=== PATIENT | female | born 1955 | race Caucasian/White ===

== ENCOUNTER → 2017-08-14 11:53 | Outpatient (CLI) | payer MEDICARE, SELFPAY | PROVIDERS: Family Provider Family Medicine; PCP Family Medicine; Visit Provider Family Medicine | DX: Z12.31 Encounter for screening mammogram for malignant neoplasm of breast (principal); Z53.9 Procedure and treatment not carried out, unspecified reason ==

== ENCOUNTER → 2017-09-14 10:21 | Outpatient (CLI) | payer MEDICARE, SELFPAY ==
--- NOTE | 2017-09-14 | DI.MG.S_ITS ---
BILATERAL DIGITAL SCREENING MAMMOGRAM 3D/2D WITH CAD: 09/14/2017 CLINICAL: Routine screening. Family history of breast cancer. Comparison is made to exams dated: 07/22/2014 ductography - [facility], 07/01/2014 mammogram, and 07/01/2014 mammogram - [facility]. The tissue of both breasts is heterogeneously dense. This may lower the sensitivity of mammography. Current study was also evaluated with a Computer Aided Detection (CAD) system. There is a biopsy clip in the left breast. No significant masses, calcifications, or other findings are seen in either breast. There has been no significant interval change. IMPRESSION: NEGATIVE There is no mammographic evidence of malignancy. A 1 year screening mammogram is recommended. This exam was interpreted at Station ID: [id number]. NOTE: For mammograms, a report in lay terms will be sent to the patient. Approximately 15% of breast malignancies will not be visualized mammographically. In the management of a palpable breast mass, a negative mammogram must not discourage biopsy of a clinically suspicious lesion. Electronically Signed By: Pj arellano/godfrey:09/14/2017 11:42:20 letter sent: Normal Exam ACR BI-RADS Category 1: Negative [id number]
== END ==
PROVIDERS: Family Provider Family Medicine; PCP Family Medicine; Visit Provider Family Medicine
DX: Z12.31 Encounter for screening mammogram for malignant neoplasm of breast (principal); Z80.3 Family history of malignant neoplasm of breast
CPT/HCPCS: 77063; 77067

== ENCOUNTER → 2018-10-30 12:35 | Outpatient (CLI) | payer MEDICARE, SELFPAY ==
[2018-10-30 13:23] LABS: BUN Creatinine Ratio 25.7 (6-22); Blood Urea Nitrogen 18 mg/dL (7-17); Calcium 9.5 mg/dL (8.4-10.2); Carbon Dioxide 27 mmol/L (22-32); Chloride 103 mmol/L (98-107); Estimated Glomerular Filt Rate > 60.0 mL/min (>60); Glucose 91 mg/dL (80-110); HEMOLYSIS < 15 (0-50); Potassium 4.2 mmol/L (3.4-5.1); Sodium 139 mmol/L (137-145)
== END ==
PROVIDERS: PCP Family Medicine; Visit Provider Family Medicine
DX: M85.80 Other specified disorders of bone density and structure, unspecified site (principal)
CPT/HCPCS: 36415; 80048

== ENCOUNTER → 2019-01-31 16:22 | Outpatient (CLI) | payer MEDICARE, SELFPAY ==
[2019-01-31 17:45] LABS: BUN Creatinine Ratio 25.7 (6-22); Blood Urea Nitrogen 18 mg/dL (7-17); Calcium 9.8 mg/dL (8.4-10.2); Carbon Dioxide 31 mmol/L (22-32); Chloride 100 mmol/L (98-107); Estimated Glomerular Filt Rate > 60.0 mL/min (>60); Glucose 103 mg/dL (80-110); HEMOLYSIS < 15 (0-50); Sodium 140 mmol/L (137-145)
[2019-01-31 18:26] LABS: HIV 1 & 2 Ab/Ag 4th Gen Combo NEGATIVE (NEGATIVE)
[2019-02-02 15:48] LABS: RPR Screen Nonreactive (Nonreactive)
[2019-02-02 18:54] LABS: HSV1IGG 5.86 index (< 0.90)
[2019-02-03 11:38] LABS: Hepatitis A Antibody IgM NONREACTIVE; Hepatitis Acute Panel Interp 0.01; Hepatitis B Core Antibody IgM NONREACTIVE; Hepatitis B Surface Antigen NONREACTIVE; Hepatitis C Antibody NONREACTIVE
== END ==
PROVIDERS: PCP Family Medicine; Visit Provider Family Medicine
DX: Z20.2 Contact with and (suspected) exposure to infections with a predominantly sexual mode of transmission (principal); N28.9 Disorder of kidney and ureter, unspecified
CPT/HCPCS: 36415; 80048; 80074; 86592; 86695; 86696; 87389

== ENCOUNTER → 2019-09-18 11:38 | Outpatient (CLI) | payer MEDICARE, SELFPAY | PROVIDERS: PCP Family Medicine; Visit Provider Nurse Practitioner | DX: N89.8 Other specified noninflammatory disorders of vagina (principal); R10.2 Pelvic and perineal pain | CPT/HCPCS: 87070; 87077; 87205 ==

== ENCOUNTER → 2019-10-14 09:02 | Outpatient (CLI) | payer MEDICARE, SELFPAY ==
[2019-10-14 10:56] LABS: BUN Creatinine Ratio 23.1 (6-22); Blood Urea Nitrogen 15 mg/dL (7-17); Calcium 9.4 mg/dL (8.4-10.2); Carbon Dioxide 28 mmol/L (22-32); Chloride 103 mmol/L (98-107); Estimated Glomerular Filt Rate > 60.0 mL/min (>60); Glucose 95 mg/dL (80-110); HEMOLYSIS < 15 (0-50); Potassium 4.4 mmol/L (3.4-5.1); Sodium 138 mmol/L (137-145)
== END ==
PROVIDERS: PCP Family Medicine; Referring Provider Family Medicine; Visit Provider Family Medicine
DX: Z51.81 Encounter for therapeutic drug level monitoring (principal); M18.0 Bilateral primary osteoarthritis of first carpometacarpal joints; Z79.1 Long term (current) use of non-steroidal anti-inflammatories (NSAID)
CPT/HCPCS: 36415; 80048

== ENCOUNTER → 2020-04-21 10:22 | Outpatient (CLI) | payer MEDICARE, SELFPAY ==
[2020-04-21 11:38] LABS: BUN Creatinine Ratio 23.6 (6-22); Blood Urea Nitrogen 17 mg/dL (7-17); Calcium 9.3 mg/dL (8.4-10.2); Carbon Dioxide 30 mmol/L (22-32); Chloride 102 mmol/L (98-107); Estimated Glomerular Filt Rate > 60.0 mL/min (>60); Glucose 100 mg/dL (80-110); HEMOLYSIS < 15 (0-50); Potassium 4.6 mmol/L (3.4-5.1); Sodium 137 mmol/L (137-145)
== END ==
PROVIDERS: PCP Family Medicine; Referring Provider Family Medicine; Visit Provider Family Medicine
DX: Z51.81 Encounter for therapeutic drug level monitoring (principal); M18.0 Bilateral primary osteoarthritis of first carpometacarpal joints; Z79.1 Long term (current) use of non-steroidal anti-inflammatories (NSAID)
CPT/HCPCS: 36415; 80048

== ENCOUNTER → 2020-04-29 09:58 | Outpatient (CLI) | payer MEDICARE, SELFPAY ==
--- NOTE | 2020-04-29 10:01 | DI.RAD.S_ITS ---
PROCEDURE: XR LUMBAR SPINE 2-3V INDICATIONS: Low back pain TECHNIQUE: 3 views of the lumbar spine were acquired. COMPARISON: None. FINDINGS: Bones: 5 [id number] vertebrae are present. There is near normal bony alignment. No vertebral body compression fractures. No suspicious bony lesions. Facet osteoarthritis is mild at L3-4, moderate at L4-5 and moderately severe at L5-S1. This is associated with mild grade 1 anterolisthesis of L4 on L5. Soft tissues: Overlying bowel gas pattern is normal. No suspicious soft tissue calcifications. IMPRESSION: No compression fracture found. Degenerative disc height reduction is present as is facet osteoarthritis at L4-5 to the degree that grade 1 anterolisthesis is present of L4 on L5, likely due to ligamentous laxity. No compression fracture found. Spinal and foraminal stenosis likely is present at L4-5 and L5-S1. Dictated by: Stephen Castro M.D. on 04/29/2020 at 11:16 Approved by: Stephen Castro M.D. on 04/29/2020 at 11:17
--- NOTE | 2020-04-29 10:01 | DI.US.S_ITS ---
PROCEDURE: US PERIPH VENOUS LOW EXTREM LT INDICATIONS: left lower leg pain and swelling with travel TECHNIQUE: Real-time imaging, as well as color and pulse Doppler interrogation, were performed of the lower extremity deep veins from the inguinal ligament to the popliteal fossa. COMPARISON: None. FINDINGS: The left common femoral, femoral and popliteal veins are normally compressible, and free of intraluminal thrombus. Color and pulse Doppler demonstrate normal phasic intraluminal flow. There is normal augmentation response to distal compression maneuver. IMPRESSION: No DVT in the left lower extremity. Dictated by: Joel Fisher M.D. on 04/29/2020 at 11:07 Approved by: Joel Fisher M.D. on 04/29/2020 at 11:07
== END ==
PROVIDERS: PCP Family Medicine; Referring Provider Family Medicine; Visit Provider Family Medicine
DX: M79.605 Pain in left leg (principal); R22.42 Localized swelling, mass and lump, left lower limb; M54.40 Lumbago with sciatica, unspecified side; M47.816 Spondylosis without myelopathy or radiculopathy, lumbar region; M43.16 Spondylolisthesis, lumbar region
CPT/HCPCS: 72100; 93971

== ENCOUNTER → 2020-05-08 13:14 | Outpatient (CLI) | payer MEDICARE, SELFPAY ==
--- NOTE | 2020-05-08 13:16 | DI.MRI.S_ITS ---
PROCEDURE: MR LUMBAR SPINE WO CON INDICATIONS: leg pain TECHNIQUE: Noncontrast sagittal T1 spin echo and T2 fast echo, sagittal STIR, axial T1 and T2 fast spin echo through the lumbar spine. In cases with scoliosis, additional coronal T2 fast spin echo may be performed. COMPARISON: [facility], MR, L-SPINE WITHOUT CONTRAST, 08/10/2011, 17:53. [facility], CR, XR LUMBAR SPINE 2-3V, 04/29/2020, 10:04. [facility], MR, L-SPINE WITHOUT CONTRAST, 09/05/2013, 19:12. FINDINGS: Image quality: Excellent. Alignment and Curvature: There is minimal anterolisthesis seen at the L4-L5 level. Bone Marrow: Marrow is of normal overall signal. No acute vertebral body compression fractures. Spinal Cord: Conus medullaris terminates at the L1 level. Visualized cord demonstrates normal signal and size. Paraspinous Soft Tissues: No paravertebral masses. T12-L1: Normal appearance. L1-L2: Normal appearance. L2-L3: No significant abnormality is seen. L3-L4: The disc height is well-preserved. Loss of disc signal is seen at this level. Mild to moderate disc bulge is seen, which is eccentric to the right. At least moderate facet hypertrophy is seen. Associated hypertrophy of the ligamentum flavum can be seen. There is [id number] right-sided and minimal left-sided neural foraminal narrowing seen. Mild central canal narrowing is seen. When comparison is made with the prior examination, these findings are similar. L4-L5: Moderate loss of disc height is seen. Loss of disc signal is seen. Moderate disc bulge is seen, with a central disc protrusion. There is an associated annular fissure seen. At least moderate facet hypertrophy is seen at this level. There is moderate right-sided and moderate to severe left-sided neural foraminal narrowing seen. There is at least moderate central canal narrowing seen. These imaging findings have progressed compared to 2014. L5-S1: Mild loss of disc height is seen. Loss of disc signal is seen. Mild generalized disc bulge is seen. Mild to moderate facet hypertrophy is seen at this level. Minimal bilateral neural foraminal narrowing can be seen. Minimal central canal narrowing is seen. When comparison is made with the prior examination, these findings are similar. IMPRESSION: Lower lumbar spine degenerative changes are seen, which have progressed compared to 2014 at the L4-L5 level. Dictated by: Shree Reid M.D. on 05/08/2020 at 13:49 Approved by: Shree Reid M.D. on 05/08/2020 at 13:52
== END ==
PROVIDERS: PCP Family Medicine; Referring Provider Family Medicine; Visit Provider Family Medicine
DX: M47.26 Other spondylosis with radiculopathy, lumbar region (principal)
CPT/HCPCS: 72148

== ENCOUNTER 2020-05-28 19:14 | Emergency (ER) | payer MEDICARE, SELFPAY ==
[2020-05-28 19:18] VITALS: BP 157/77; PULSE 84; RESP 14; TEMP 36.6; O2SAT 96; BMI 25.9
--- NOTE | 2020-05-28 20:29 | ED.EXTPRO ---
HPI - Extremity Problem General Chief complaint: Extremity Problem,Nontraumatic Stated complaint: swelling left leg, pain Time Seen by Provider: 05/28/20 20:11 Source: patient Mode of arrival: Ambulatory Limitations: no limitations History of Present Illness HPI Narrative: Patient is a 64-year-old female who has known lumbar spinal stenosis/degenerative disc disease diagnosis from an MRI that was was recently performed. She has seen Orthopedics because of this and was informed that she most likely needed operative repair however she is waiting for a 2nd opinion from another commercial marketing specialist. She has seen her primary doctor about her lower back pain. She has a prescription for gabapentin which apparently she only takes occasionally. She has also been on a steroid taper. She has left lower extremity swelling that goes from her hip to her ankles. This is also not new for her. She had a left lower extremity DVT ultrasound performed that showed no signs of a DVT. She comes the emergency department today because her symptoms have continued and she thinks that her left leg swelling has worsened. Related Data Home Medications Medication Instructions Recorded Confirmed Fish Oil 1,000 mg PO QDAY PRN #0 09/18/19 04/29/20 Previous Rx's Medication Instructions Recorded meclizine 25 mg tablet 25 mg PO TID PRN #30 tab 02/06/20 sumatriptan succinate 50 mg tablet 50 mg PO ONCE PRN #10 tab 02/06/20 ibuprofen 800 mg tablet 800 mg PO Q8H PRN #90 tab 04/22/20 prednisone 50 mg tablet 50 mg PO DAILY #5 tab 05/06/20 gabapentin 300 mg capsule 300 mg PO TID PRN #60 cap 05/13/20 hydrocodone 5 mg-acetaminophen 325 1 tab PO Q8H PRN #30 tab 05/22/20 mg tablet hydrocodone-acetaminophen [[place]] 1 tab PO Q4-6H PRN #10 tab 05/28/20 Allergies Allergy/AdvReac Type Severity Reaction Status Date / Time morphine [MORPHINE] Allergy Severe SOB/ANAPHYL Verified 05/28/20 19:20 AXIS ketoconazole [KETOCONAZOLE] AdvReac Intermediate pain, rash Verified 05/28/20 19:20 Review of Systems Constitutional Constitutional: Denies fever(s) and Denies headache(s) ENT Ears, Nose, Mouth, and Throat: Denies vertigo and Denies headache(s) Cardiovascular Cardiovascular: Denies chest pain and Denies dyspnea Respiratory Respiratory: Denies dyspnea Gastrointestinal Gastrointestinal: Denies abdominal pain, Denies change in bowel habits, Denies nausea and Denies vomiting Genitourinary Genitourinary: Denies dysuria, Denies urinary hesitancy and Denies urinary urgency Genitourinary: Denies dysuria, Denies urinary hesitancy, Denies urinary urgency and Denies vaginal discharge Musculoskeletal Musculoskeletal: Reports back pain Comments: Left leg swelling Integumentary/Breasts Skin/Breast: Denies lesions and Denies rash Neurologic Neurologic: Denies behavioral changes, Denies confusion, Denies vertigo, Denies headache(s) and Reports paresthesias Psychiatric Psychiatric: Denies behavioral changes and Denies confusion Hematologic/Lymphatic On Anticoagulants: No Allergic/Immunologic Allergic/Immunologic: Denies urticaria Patient History Medical History Back pain of lumbar region with sciatica Breast cancer Carpal tunnel syndrome (~2007) Chronic back pain (~2006) Headache (~1976) Hearing deficit Lumbar strain Migraines (~1976) Osteoarthritis of spine with radiculopathy, lumbar region Psoriasis Vaginal atrophy Vaginal pain Vision disorder Yeast infection Surgical History Anesthesia History of carpal tunnel repair Status post breast lumpectomy Status post hysterectomy Family History Father Cancer Grandmother Age: 73 Dementia Essential hypertension Mother Diabetes mellitus Essential hypertension High cholesterol Mental health problem Sister Age: 66 Cancer Essential hypertension High cholesterol Grandfather No problems noted. Social History Smoking Status: Never smoker Smoking Status: Never smoker Exam Initial Vital Signs Initial Vital Signs: Vital Signs Temperature 97.8 F 05/28/20 19:18 Pulse Rate 84 05/28/20 19:18 Respiratory Rate 14 05/28/20 19:18 Blood Pressure 157/77 H 05/28/20 19:18 Pulse Oximetry 96 05/28/20 19:18 Const General: cooperative, comfortable, well developed and well groomed Limitations: mental status not altered HENMT Head: normal to inspection and normocephalic Resp Effort & Inspection: normal respiratory effort Auscultation: clear to auscultation bilaterally Cardio Rate: regular rate Rhythm: regular rhythm GI Inspection: non-distended Palpation: soft, No firm and No tender Back/Spine/Pelvis Thoracic/Lumbar Spine: paraspinal tenderness (Left lumbar) Skin Rashes: no rashes Extrem General: full ROM, capillary refill normal, no calf tenderness and edema (Nonpitting edema left lower extremity) Psych Appearance: grossly normal and well kempt Course Orders Ordered: ED Orders 05/28/20 20:29 US periph venous low extrem lt Stat 05/28/20 20:55 Complete Blood Count AUTO DIFF Stat Comprehensive Metabolic Panel Stat Lipase Stat NT-proBNP (BNP-Adult 18+) Stat Discontinued Medications Hydromorphone HCl (Hydromorphone 1 Mg Inj) 1 mg IM NOW ONE Stop: 05/28/20 20:30 Last Admin: 05/28/20 20:45 Dose: 1 mg Documented by: LORI Hydromorphone HCl (Hydromorphone 1 Mg Inj) 1 mg IM NOW ONE Stop: 05/28/20 23:25 Last Admin: 05/28/20 23:33 Dose: 1 mg Documented by: LORI Vital Signs Vital signs: Vital Signs - 8 hr 05/28/20 19:18 05/28/20 23:40 Temperature 97.8 F Pulse Rate 84 78 Respiratory Rate 14 17 Blood Pressure 157/77 H 147/91 H Pulse Oximetry 96 99 MDM - Extremity (Nontraumatic) Lab Data Result diagrams: 05/28/20 20:55 05/28/20 20:55 Labs: Lab Results 05/28/20 05/28/20 Range/Units 20:55 20:55 WBC 6.3 (4.5-11.0) X10^3/uL RBC 4.05 (4.0-5.2) X10^6/uL Hgb 12.4 (12.0-16.0) g/dL Hct 36.8 (36-46) % MCV 90.9 (80-100) fL MCH 30.7 (26-34) PG MCHC 33.8 (30-36) % RDW 13.6 (11.6-14.8) % Plt Count 234 (150-400) X10^3/uL Neut % (Auto) 58.6 (50-75) % Lymph % (Auto) 28.1 (25-40) % Whitley % (Auto) 9.1 (3-14) % Eos % (Auto) 3.2 (2-4) % Baso % (Auto) 1.0 (0-2) % Neut # (Auto) 3700 (8795-4099) /uL Lymph # (Auto) 1800 (0555-7882) /uL Whitley # (Auto) 600 (0-900) /uL Eos # (Auto) 200 (0-450) /uL Baso # (Auto) 100 (0-100) /uL Sodium 138 (137-145) mmol/L Potassium 4.0 (3.4-5.1) mmol/L Chloride 107 (98-107) mmol/L Carbon Dioxide 29 (22-32) mmol/L BUN 20 H (7-17) mg/dL Creatinine 0.61 (0.52-1.04) mg/dL Estimated GFR > 60.0 (>60) mL/min BUN/Creatinine Ratio 32.8 H (6-22) Glucose 101 (80-110) mg/dL Calcium 9.0 (8.4-10.2) mg/dL Total Bilirubin 0.2 (0.2-1.3) mg/dL AST 127 H (14-36) IU/L ALT 112 H (<35) IU/L Alkaline Phosphatase 91 (38-126) U/L NT-Pro-B Natriuret Pep 36 (<125) pg/mL Total Protein 6.7 (6.3-8.2) g/dL Albumin 4.0 (3.5-5.0) g/dL Globulin 2.7 (1.7-4.1) g/dL Albumin/Globulin Ratio 1.5 (1.0-2.8) Lipase 113 (23-300) U/L Imaging Data US - DVT: Radiologist's Impression: [address] [id number] ReportSigned Patient: Tiffani Firend MMR#: [id number]: 8Acct:[id number]/Sex: 64 / FDate of Service: 05/28/20Loc: EDAccession Number: [id number] Procedure: US periph venous low extrem lt Ordering Provider: Kal Jeffrey D.O. PROCEDURE: US PERIPH VENOUS LOW EXTREM LT INDICATIONS: eval for DVT TECHNIQUE: Real-time imaging, as well as color and pulse Doppler interrogation, were performed of the lower extremity deep veins from the inguinal ligament to the popliteal fossa. COMPARISON: [facility], , [facility] VENOUS LOW EXTREM LT, 04/29/2020, 10:50. FINDINGS: The common femoral, femoral and popliteal veins are normally compressible, and free of intraluminal thrombus. Color and pulse Doppler demonstrate normal phasic intraluminal flow. There is normal augmentation response to distal compression maneuver. IMPRESSION: No evidence of left lower extremity DVT. Dictated by: Elisabeth Drew M.D. on 05/28/2020 at 21:45 Approved by: Elisabeth Drew M.D. on 05/28/2020 at 21:45 MDM Narrative Medical decision making narrative: Patient has known degenerative disc disease with left-sided radiculopathy that is not new for her. She has prescriptions for medications at home but appears that she is only taking the gabapentin periodically same thing with anti-inflammatories. Informed her that she needed to be taking the gabapentin on a daily basis same with anti-inflammatories. We did discuss starting on a anti-reflux medication because of this. Low suspicion for cauda equina given her presentation today. Patient does have nonpitting edema with her left lower extremity. Her compartments are soft. She has no chest pain. No shortness of breath. Her kidney functions unremarkable. Low suspicion for heart failure. There is no signs of cellulitis. She has no abdominal tenderness. No change in bowel habits. Repeat ultrasound today again shows no DVT. Considered other etiologies such as a intra-abdominal/pelvic issue causing a decrease in venous drainage however besides the lower extremity swelling she has no other physical exam or history findings of make me concerned this. If this continues I would recommend obtaining a CT scan of her abdomen pelvis to confirm there is no intra-abdominal pathology. Informed her she needed to continue with her current plan of following up with the commercial marketing specialist to discuss surgical intervention of her back. She was given return precautions and follow-up instructions. She expressed understanding and agreement. Discharge Plan Departure Patient Disposition: Home Clinical Impression: Lumbar back pain with radiculopathy affecting left lower extremity, Edema of left lower extremity Instructions: DI for Low Back Pain, Activity May Be Better Than Rest for Low Back Pain Recovery, Exercise May Reduce Risk of Low Back Pain Activity Restrictions/Additional Instructions: I recommend that you continue all of your medications as directed. Contact your primary doctor and also the commercial marketing specialist that you are going to see for follow-up. I do recommend that you take the gabapentin 3 times a day. Also recommend that you take ibuprofen 3 times a day with food. Return to the emergency department for any new or worsening symptoms Prescriptions: New hydrocodone-acetaminophen [[place]] 5-325 mg tablet 1 tab PO Q4-6H PRN (Reason: pain) Qty: 10 RF: 0 No Action Fish Oil 1,000 mg PO QDAY PRNQty: 0 RF: 0 ibuprofen 800 mg tablet 800 mg PO Q8H PRN (Reason: pain) Qty: 90 RF: 0 prednisone 50 mg tablet 50 mg PO DAILY Qty: 5 RF: 0 gabapentin 300 mg capsule 300 mg PO TID PRN (Reason: nerve pain) Qty: 60 RF: 0 meclizine 25 mg tablet 25 mg PO TID PRN (Reason: dizziness) Qty: 30 RF: 1 sumatriptan succinate [Imitrex] 50 mg tablet 50 mg PO ONCE PRN (Reason: migraine headache) Qty: 10 RF: 1 hydrocodone-acetaminophen 5-325 mg tablet 1 tab PO Q8H PRN (Reason: pain) Qty: 30 RF: 0 Referrals: García Bolton MD [Primary Care Provider] -
[2020-05-28] MEDS: HYDROMORPHONE 1 MG INJ IM ×2 (20:45→23:33)
[2020-05-28 21:03] LABS: Add Manual Diff / Slide Review NO; Basophils Absolute Auto 100 /uL (0-100); Eosinophils Absolute Auto 200 /uL (0-450); Eosinophils Percent Auto 3.2 % (2-4); Hematocrit 36.8 % (36-46); Hemoglobin 12.4 g/dL (12.0-16.0); Lymphocytes Absolute Auto 1800 /uL (1100-4500); Lymphocytes Percent Auto 28.1 % (25-40); Mean Corpuscular HGB Conc 33.8 % (30-36); Mean Corpuscular Hemoglobin 30.7 PG (26-34); Mean Corpuscular Volume 90.9 fL (80-100); Monocytes Absolute Auto 600 /uL (0-900); Monocytes Percent Auto 9.1 % (3-14); Neutrophils Absolute Auto 3700 /uL (1500-7000); Neutrophils Percent Auto 58.6 % (50-75); Platelet Count 234 X10^3/uL (150-400); Red Blood Cell Count 4.05 X10^6/uL (4.0-5.2); Red Cell Distribution Width 13.6 % (11.6-14.8); White Blood Cell Count 6.3 X10^3/uL (4.5-11.0)
[2020-05-28 21:12] LABS: Alanine Aminotransferase 112 IU/L (<35); Albumin Globulin Ratio 1.5 (1.0-2.8); Alkaline Phosphatase 91 U/L (38-126); Aspartate Aminotransferase 127 IU/L (14-36); BUN Creatinine Ratio 32.8 (6-22); Bilirubin Total 0.2 mg/dL (0.2-1.3); Blood Urea Nitrogen 20 mg/dL (7-17); Carbon Dioxide 29 mmol/L (22-32); Chloride 107 mmol/L (98-107); Estimated Glomerular Filt Rate > 60.0 mL/min (>60); Globulin 2.7 g/dL (1.7-4.1); Glucose 101 mg/dL (80-110); HEMOLYSIS 32 (0-50); Lipase 113 U/L (23-300); Sodium 138 mmol/L (137-145); Total Protein 6.7 g/dL (6.3-8.2)
[2020-05-28 21:21] LABS: NT-proBNP (BNP-Adult 18+) 36 pg/mL (<125)
[2020-05-28 23:40] VITALS: BP 147/91; PULSE 78; RESP 17; O2SAT 99
== END 2020-05-28 23:40 | disposition home or self-care (01) ==
PROVIDERS: Emergency Provider Emergency Medicine; PCP Family Medicine
DX: M54.16 Radiculopathy, lumbar region (principal); R60.0 Localized edema; M79.605 Pain in left leg; M51.36 Other intervertebral disc degeneration, lumbar region
CPT/HCPCS: 36415; 80053; 83690; 83880; 85025; 93971; 96372; 99283; 99284; J1170

== ENCOUNTER → 2020-05-29 14:20 | Outpatient (CLI) | payer MEDICARE, SELFPAY ==
--- NOTE | 2020-05-29 14:22 | DI.CT.S_ITS ---
PROCEDURE: CT ABDOMEN PELVIS W CON INDICATIONS: evauluate for pathology TECHNIQUE: After the administration of intravenous contrast, 5 mm thick sections acquired from the diaphragm to the symphysis. 5 mm coronal and sagittal reformats were acquired. For radiation dose reduction, the following was used: automated exposure control, adjustment of mA and/or kV according to patient size. COMPARISON: None. FINDINGS: Image quality: Excellent. ABDOMEN: Lung bases: Lung bases are clear. Heart size is normal. Solid organs: Liver is normal in size and enhancement. Gallbladder is unremarkable. Biliary system is non dilated. Pancreas enhances normally. Spleen is normal in size and enhancement. No adrenal nodules. Kidneys demonstrate normal size and enhancement, without hydronephrosis. Peritoneum and bowel: Edema and wall thickening of the distal antrum/pylorus of the stomach. No gastric outlet obstruction. Bowel loops demonstrate normal wall thickness and caliber. No free fluid or air. Large amount of fecal debris. Probable appendectomy clips. Nodes and vessels: No retroperitoneal or mesenteric adenopathy by size criteria. Aorta and inferior vena cava are normal in size. Miscellaneous: No ventral hernias. PELVIS: Genitourinary: Bladder wall thickness is normal. Miscellaneous: No inguinal hernias or adenopathy. Uterus is surgically absent. Bones: No suspicious bony lesions. No vertebral body compression fractures. IMPRESSION: 1. Edema and thickening of the distal antrum and pylorus of the stomach. Consider peptic ulcer disease. Consider direct endoscopic visualization on a nonemergent basis. 2. No other significant acute findings. Dictated by: Dar Feliz M.D. on 05/29/2020 at 15:04 Approved by: Dar Feliz M.D. on 05/29/2020 at 15:08
== END ==
PROVIDERS: PCP Family Medicine; Referring Provider Family Medicine; Visit Provider Family Medicine
DX: R60.0 Localized edema (principal)
CPT/HCPCS: 74177

== ENCOUNTER 2020-06-03 20:04 | Emergency (ER) | payer MEDICARE, SELFPAY ==
[2020-06-03 20:12] VITALS: BP 177/92; PULSE 91; RESP 18; O2SAT 97; BMI 24.4
[2020-06-03 20:53] LABS: Add Manual Diff / Slide Review NO; Basophils Absolute Auto 100 /uL (0-100); Eosinophils Absolute Auto 300 /uL (0-450); Eosinophils Percent Auto 3.6 % (2-4); Hematocrit 39.8 % (36-46); Hemoglobin 13.2 g/dL (12.0-16.0); Lymphocytes Absolute Auto 1700 /uL (1100-4500); Lymphocytes Percent Auto 24.6 % (25-40); Mean Corpuscular HGB Conc 33.2 % (30-36); Mean Corpuscular Hemoglobin 30.4 PG (26-34); Mean Corpuscular Volume 91.5 fL (80-100); Monocytes Absolute Auto 700 /uL (0-900); Monocytes Percent Auto 9.3 % (3-14); Neutrophils Absolute Auto 4300 /uL (1500-7000); Neutrophils Percent Auto 61.5 % (50-75); Platelet Count 267 X10^3/uL (150-400); Red Blood Cell Count 4.34 X10^6/uL (4.0-5.2); Red Cell Distribution Width 13.8 % (11.6-14.8)
[2020-06-03 20:56] LABS: Prothrombin Time 10.9 SECONDS (10.1-12.7)
[2020-06-03 21:01] LABS: Alanine Aminotransferase 53 IU/L (<35); Albumin 4.4 g/dL (3.5-5.0); Albumin Globulin Ratio 1.6 (1.0-2.8); Alkaline Phosphatase 86 U/L (38-126); Aspartate Aminotransferase 38 IU/L (14-36); BUN Creatinine Ratio 23.5 (6-22); Bilirubin Total 0.1 mg/dL (0.2-1.3); Blood Urea Nitrogen 16 mg/dL (7-17); Calcium 9.5 mg/dL (8.4-10.2); Carbon Dioxide 29 mmol/L (22-32); Chloride 104 mmol/L (98-107); Estimated Glomerular Filt Rate > 60.0 mL/min (>60); Globulin 2.7 g/dL (1.7-4.1); Glucose 97 mg/dL (80-110); HEMOLYSIS < 15 (0-50); Potassium 3.6 mmol/L (3.4-5.1); Sodium 137 mmol/L (137-145); Total Protein 7.1 g/dL (6.3-8.2)
[2020-06-03 21:06] LABS: C-Reactive Protein Quant < 0.5 mg/dL (<1.0)
[2020-06-03 21:33] LABS: D Dimer < 200 ng/mL (<230)
--- NOTE | 2020-06-03 21:41 | DI.CT.S_ITS ---
PROCEDURE: CT ANGIO LE LT INDICATIONS: pain, swelling left thigh, knee TECHNIQUE: After the administration of intravenous contrast, 2.5 mm sections acquired from T12 to the feet, with optional delayed image acquisition from the knees to the feet. 3-dimensional maximum intensity projection (MIP) coronal and sagittal reformats, and/or 3-dimensional volume rendering reformatting was then performed. For radiation dose reduction, the following was used: automated exposure control. COMPARISON: None. FINDINGS: Image quality: Excellent. Extravascular tissues: Lung bases are clear. Heart size is normal. Liver is normal in size and enhancement. Gallbladder is unremarkable. Biliary system is non dilated. Pancreas enhances normally. There is a large heterogeneous, hypervascular mass in the spleen which measures 4.7 x 4.7 x 5.0 cm. No adrenal nodules. Kidneys are normal in size and enhancement, without hydronephrosis. Non opacified bowel loops demonstrate normal wall thickness and enhancement. No free fluid or air. No retroperitoneal or mesenteric adenopathy. No ventral hernias. Bladder wall thickness is normal. No inguinal hernias or adenopathy. No suspicious bony lesions. No vertebral body compression fractures. Uterus is surgically absent. Abdominal aorta: Widely patent. SMA, celiac, [place], and renals are widely patent. Right lower extremity: Common iliac, external iliac, common femoral, SFA, popliteal, and 3 runoff vessels are widely patent. Left lower extremity: Common iliac, external iliac, common femoral, SFA, popliteal, and posterior tibial and peroneal are widely patent. Anterior tibial appears to be diminutive and may occlude. There is no vascular malformation noted. No vascular lesion of the thigh identified. IMPRESSION: 1. Left lower extremity arterial runoff demonstrates a diminutive anterior tibial artery with question of occlusion. The vasculature is otherwise unremarkable. There is no lesion in the left thigh identified. 2. There is a 5 cm maximum diameter heterogeneous diffusely enhancing mass involving the spleen. It is on uncertain etiology. 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 Comment: Final report is concordant with preliminary interpretation provided by [facility]. Comment: Findings were discussed with Dr. Jeffrey at the time of study dictation on 06/04/2020 at 0834 hours. Dictated by: Dar Feliz M.D. on 06/04/2020 at 8:18 Approved by: Dar Feliz M.D. on 06/04/2020 at 8:44
[2020-06-03 21:46] LABS: Bacteria Urine None Seen; RBC Urine None Seen (0-5/HPF); WBC Urine None Seen (0-5/HPF)
[2020-06-03 21:47] LABS: Appearance Urine UA CLEAR; Bilirubin Urine UA NEGATIVE (NEGATIVE); Color Urine UA YELLOW; Glucose Urine UA NEGATIVE (Negative); Ketones Urine UA NEGATIVE (NEGATIVE); Leukocyte Esterase Urine UA NEGATIVE (NEGATIVE); Nitrite Urine UA NEGATIVE (Negative); Occult Blood Urine UA TRACE-LYSED (Negative); Protein Urine UA NEGATIVE (Negative); Specific Gravity Urine UA <=1.005 (1.000-1.035); Urobilinogen Urine UA 0.2 E.U./dL (0.2)
[2020-06-03 21:49] LABS: pH Urine UA 6.5 (4.5-8.0)
[2020-06-03 21:53] LABS: Squamous Epithelial Cell Urine 0-1 /HPF (0-5/HPF)
--- NOTE | 2020-06-03 21:53 | ED_ITS ---
HPI - Extremity Problem General Chief complaint: Extremity Problem,Nontraumatic Stated complaint: feels miserable Time Seen by Provider: 06/03/20 20:05 Source: patient Mode of arrival: Ambulatory Limitations: no limitations History of Present Illness HPI Narrative: 64-year-old female nonsmoker with extensive history of lumbar pain presents with a friend and the chief complaint of increased pain and swelling in her left lower extremity in the absence of any injury. She states her symptoms have been gradually worsening for least the past few days. Additionally she has had some upper abdominal discomfort and nausea but denies any vomiting. She has had no fever chills. She denies any injury or trauma. She denies any chest pain or shortness of breath. She is not dizzy or lightheaded but says she generally feels unwell and weak. She was seen and evaluated a few days ago and had a very thorough evaluation including and a lower extremity Doppler which was negative for DVT. She had close follow-up with her PCP who then ordered an outpatient abdominal and pelvic CT which was largely unremarkable except for some thickening at the antrum suggestive of mild GI problem. Patient states that the pain in her leg is worse with motion and improves with rest. She states it hurts with both passive and active range of motion. She denies any trouble controlling bowel or bladder. MD Complaint: extremity pain and extremity swelling Onset (ago): day(s) Pain Consistency: constant Location: left Quality: aching and constant Radiation: distal Relieving factors: rest Exacerbating factors: range of motion Associated symptoms: denies other symptoms Related Data Home Medications Medication Instructions Recorded Confirmed Fish Oil 1,000 mg PO QDAY PRN #0 09/18/19 04/29/20 Previous Rx's Medication Instructions Recorded meclizine 25 mg tablet 25 mg PO TID PRN #30 tab 02/06/20 sumatriptan succinate 50 mg tablet 50 mg PO ONCE PRN #10 tab 02/06/20 ibuprofen 800 mg tablet 800 mg PO Q8H PRN #90 tab 04/22/20 prednisone 50 mg tablet 50 mg PO DAILY #5 tab 05/06/20 gabapentin 300 mg capsule 300 mg PO TID PRN #60 cap 05/13/20 hydromorphone 2 mg tablet 1 mg PO Q8H PRN #6 tab 05/29/20 Allergies Allergy/AdvReac Type Severity Reaction Status Date / Time morphine [MORPHINE] Allergy Severe SOB/ANAPHYL Verified 06/03/20 20:11 AXIS ketoconazole [KETOCONAZOLE] AdvReac Intermediate pain, rash Verified 06/03/20 20:11 Review of Systems Constitutional Constitutional: Denies chills, Denies fatigue, Denies fever(s), Denies frequent falls, Denies lethargy and Reports weakness Eyes Eyes: Denies change in vision, Denies eye discharge, Denies irritation and Denies loss of vision ENT Ears, Nose, Mouth, and Throat: Denies change in voice, Denies dizziness, Denies neck pain, Denies sore throat and Denies throat swelling Cardiovascular Cardiovascular: Denies chest pain, Denies irregular heart rhythm, Denies lightheadedness, Denies palpitations, Denies dyspnea, Denies dyspnea on exertion and Denies orthopnea Respiratory Respiratory: Denies cough, Denies dyspnea, Denies dyspnea on exertion and Denies wheezing Gastrointestinal Gastrointestinal: Denies abdominal pain, Denies change in bowel habits, Denies diarrhea, Reports nausea and Denies vomiting Musculoskeletal Musculoskeletal: Reports arthralgias, Reports joint swelling, Reports limited range of motion, Denies neck pain and Denies numbness Integumentary/Breasts Skin/Breast: Denies pruritus, Denies erythema, Denies rash, Reports skin pain, Reports skin swelling and Denies wounds Neurologic Neurologic: Denies behavioral changes, Denies confusion, Denies dizziness, Denies frequent falls, Denies loss of vision, Denies numbness and Reports weakness Psychiatric Psychiatric: Denies anxiety, Denies behavioral changes, Denies confusion, Denies depression, Denies homicidal ideation and Denies suicidal ideation Endocrine Endocrine: Denies fatigue, Denies flushing and Denies palpitations Hematologic/Lymphatic Hematologic/Lymphatic: Denies easy bruising Allergic/Immunologic Allergic/Immunologic: Denies urticaria, Denies throat swelling and Denies wheezing Patient History Medical History Back pain of lumbar region with sciatica Breast cancer Carpal tunnel syndrome (~2007) Chronic back pain (~2006) Headache (~1976) Hearing deficit Lumbar strain Migraines (~1976) Osteoarthritis of spine with radiculopathy, lumbar region Psoriasis Vaginal atrophy Vaginal pain Vision disorder Yeast infection Surgical History Anesthesia History of carpal tunnel repair Status post breast lumpectomy Status post hysterectomy Family History Father Cancer Grandmother Age: 73 Dementia Essential hypertension Mother Diabetes mellitus Essential hypertension High cholesterol Mental health problem Sister Age: 66 Cancer Essential hypertension High cholesterol Grandfather No problems noted. Social History Smoking Status: Never smoker Smoking Status: Never smoker Substance Use Type: does not use Exam Narrative Exam Narrative: GENERAL: [64] year old patient appears stated age. Well- nourished, well-developed patient, in mild distress. Obviously uncomfortable, rubbing her left anterior thigh and groin. HEAD: Atraumatic. Normocephalic. EYES: Pupils equal round and reactive. Extraocular motions intact. No scleral icterus. No injection or drainage. ENT: Nose without bleeding, purulent drainage. Throat without erythema, tonsillar hypertrophy or exudate. Airway patent. NECK: Trachea midline. Non tender CARDIOVASCULAR: Regular rate and rhythm without murmurs, gallops, or rubs. RESPIRATORY: Clear to auscultation. Breath sounds equal bilaterally. No wheezes, rales, or rhonchi. GASTROINTESTINAL: Abdomen soft, non-tender, nondistended. EXTREMITIES: Increased pain with both passive and active range of motion at the left hip, no obvious deformity, no obvious swelling or erythema. Tender to palpation of hip, anterior thigh and posterior knee. Skin is warm, pink and dry. Dorsalis pedis pulse 2 + BACK: Nontender without deformity or crepitance. No flank tenderness. NEURO: AOx3. No numbness or tingling SKIN: No rash or erythema of visible areas Initial Vital Signs Initial Vital Signs: Vital Signs Pulse Rate 91 H 06/03/20 20:12 Respiratory Rate 18 06/03/20 20:12 Blood Pressure 177/92 H 06/03/20 20:12 Pulse Oximetry 97 06/03/20 20:12 Course Orders Ordered: ED Orders 06/03/20 20:30 C-Reactive Protein Quant Stat Complete Blood Count AUTO DIFF Stat Comprehensive Metabolic Panel Stat D Dimer Stat Prothrombin Time INR Stat 06/03/20 21:05 Urinalysis and Microscopic Stat 06/03/20 21:41 CT angio LE LT Stat Vital Signs Vital signs: Vital Signs - 8 hr 06/03/20 20:12 06/03/20 22:10 06/03/20 23:43 Pulse Rate 91 H 64 61 Respiratory Rate 18 16 18 Blood Pressure 177/92 H 149/75 H 149/86 H Pulse Oximetry 97 98 98 MDM - Extremity (Nontraumatic) Lab Data Result diagrams: 06/03/20 20:30 06/03/20 20:30 Labs: Lab Results 06/03/20 06/03/20 06/03/20 Range/Units 20:30 20:30 20:30 WBC 7.0 (4.5-11.0) X10^3/uL RBC 4.34 (4.0-5.2) X10^6/uL Hgb 13.2 (12.0-16.0) g/dL Hct 39.8 (36-46) % MCV 91.5 (80-100) fL MCH 30.4 (26-34) PG MCHC 33.2 (30-36) % RDW 13.8 (11.6-14.8) % Plt Count 267 (150-400) X10^3/uL Neut % (Auto) 61.5 (50-75) % Lymph % (Auto) 24.6 L (25-40) % [place] % (Auto) 9.3 (3-14) % Eos % (Auto) 3.6 (2-4) % Baso % (Auto) 1.0 (0-2) % Neut # (Auto) 4300 (9662-8977) /uL Lymph # (Auto) 1700 (7946-5277) /uL [place] # (Auto) 700 (0-900) /uL Eos # (Auto) 300 (0-450) /uL Baso # (Auto) 100 (0-100) /uL PT 10.9 (10.1-12.7) SECONDS INR 1.0 (0.9-1.3) D-Dimer < 200 (<230) ng/mL Sodium (137-145) mmol/L Potassium (3.4-5.1) mmol/L Chloride (98-107) mmol/L Carbon Dioxide (22-32) mmol/L BUN (7-17) mg/dL Creatinine (0.52-1.04) mg/dL Estimated GFR (>60) mL/min BUN/Creatinine Ratio (6-22) Glucose (80-110) mg/dL Calcium (8.4-10.2) mg/dL Total Bilirubin (0.2-1.3) mg/dL AST (14-36) IU/L ALT (<35) IU/L Alkaline Phosphatase (38-126) U/L C-Reactive Protein (<1.0) mg/dL Total Protein (6.3-8.2) g/dL Albumin (3.5-5.0) g/dL Globulin (1.7-4.1) g/dL Albumin/Globulin Ratio (1.0-2.8) Urine Color Urine Appearance Urine pH (4.5-8.0) Ur Specific [place] (1.000-1.035) Urine Protein (Negative) Urine Glucose (UA) (Negative) g/dL Urine Ketones (NEGATIVE) Urine Occult Blood (Negative) Urine Nitrate (Negative) Urine Bilirubin (NEGATIVE) Urine Urobilinogen (0.2) E.U./dL Ur Leukocyte Esterase (NEGATIVE) Urine RBC (0-5/HPF) Urine WBC (0-5/HPF) Ur Squamous Epith Cells (0-5/HPF) Urine Bacteria (None) Ur Culture Indicated? Micro UA Comment 06/03/20 06/03/20 Range/Units 20:30 21:05 WBC (4.5-11.0) X10^3/uL RBC (4.0-5.2) X10^6/uL Hgb (12.0-16.0) g/dL Hct (36-46) % MCV (80-100) fL MCH (26-34) PG MCHC (30-36) % RDW (11.6-14.8) % Plt Count (150-400) X10^3/uL Neut % (Auto) (50-75) % Lymph % (Auto) (25-40) % [place] % (Auto) (3-14) % Eos % (Auto) (2-4) % Baso % (Auto) (0-2) % Neut # (Auto) (1331-1164) /uL Lymph # (Auto) (8600-2071) /uL [place] # (Auto) (0-900) /uL Eos # (Auto) (0-450) /uL Baso # (Auto) (0-100) /uL PT (10.1-12.7) SECONDS INR (0.9-1.3) D-Dimer (<230) ng/mL Sodium 137 (137-145) mmol/L Potassium 3.6 (3.4-5.1) mmol/L Chloride 104 (98-107) mmol/L Carbon Dioxide 29 (22-32) mmol/L BUN 16 (7-17) mg/dL Creatinine 0.68 (0.52-1.04) mg/dL Estimated GFR > 60.0 (>60) mL/min BUN/Creatinine Ratio 23.5 H (6-22) Glucose 97 (80-110) mg/dL Calcium 9.5 (8.4-10.2) mg/dL Total Bilirubin 0.1 L (0.2-1.3) mg/dL AST 38 H (14-36) IU/L ALT 53 H (<35) IU/L Alkaline Phosphatase 86 (38-126) U/L C-Reactive Protein < 0.5 (<1.0) mg/dL Total Protein 7.1 (6.3-8.2) g/dL Albumin 4.4 (3.5-5.0) g/dL Globulin 2.7 (1.7-4.1) g/dL Albumin/Globulin Ratio 1.6 (1.0-2.8) Urine Color Yellow Urine Appearance Clear Urine pH 6.5 (4.5-8.0) Ur Specific [place] <=1.005 (1.000-1.035) Urine Protein Negative (Negative) Urine Glucose (UA) Negative (Negative) g/dL Urine Ketones Negative (NEGATIVE) Urine Occult Blood Trace-lysed (Negative) Urine Nitrate Negative (Negative) Urine Bilirubin Negative (NEGATIVE) Urine Urobilinogen 0.2 (0.2) E.U./dL Ur Leukocyte Esterase Negative (NEGATIVE) Urine RBC None seen (0-5/HPF) Urine WBC None seen (0-5/HPF) Ur Squamous Epith Cells 0-1 /hpf (0-5/HPF) Urine Bacteria None seen (None) Ur Culture Indicated? Cult not indicated Micro UA Comment Microscopic normal Urine Dip Bedside Urine Glucose Negative Bedside Urine Bilirubin - Negative Bedside Urine Ketone + 15 Urine Specific [place] 1.000 Bedside Urine Occult Blood + Bedside Urine pH 6 Bedside Urine Protein - Negative Bedside Urine Urobilinogen - Negative Bedside Urine Nitrite - Negative Bedside Urine Leukocytes - Negative Esterase Imaging Data CTA LE: Radiologist's Impression: No acute findings MDM Narrative Medical decision making narrative: Patient with known lumbar radiculopathy presents with concern for increasing pain and swelling of leg. No red flag symptoms such as fever, loss of bowel/bladder, LE weakness, saddle anesthesia, foot drop. No erythema, warmth, or swelling on exam to suggest DVT or cellulitis. No obvious worsening of symptoms with palpation. Very reassuring imaging and no evidence of abnormal findings on angiography. History, physical, labs, and imaging would suggest this is likely acute exacerbation of chronic lumbar radiculopathy. Patient feels much better after workup and discussions. She has been given return precautions and had questions answered to her apparent satisfaction. Discharge Plan Departure Patient Disposition: Home Clinical Impression: Left lumbar radiculopathy Instructions: DI for Lumbar Radiculopathy Activity Restrictions/Additional Instructions: *You have been diagnosed with [acute on chronic lumbar radiculopathy] *What to do: *Continue to take medications as directed *Follow up with your primary care provider in 2-3 days, call for an appointment. Let them know you were seen in the Emergency Department and that we ask that you be seen in follow up *Return to ER if you should have any new, worsening or concerning symptoms, such as [loss of control of bowel or bladder, leg weakness, or other bothersome symptoms ] Prescriptions: No Action Fish Oil 1,000 mg PO QDAY PRNQty: 0 RF: 0 ibuprofen 800 mg tablet 800 mg PO Q8H PRN (Reason: pain) Qty: 90 RF: 0 prednisone 50 mg tablet 50 mg PO DAILY Qty: 5 RF: 0 gabapentin 300 mg capsule 300 mg PO TID PRN (Reason: nerve pain) Qty: 60 RF: 0 hydromorphone [Dilaudid] 2 mg tablet 1 mg PO Q8H PRN (Reason: pain) Qty: 6 RF: 0 meclizine 25 mg tablet 25 mg PO TID PRN (Reason: dizziness) Qty: 30 RF: 1 sumatriptan succinate [Imitrex] 50 mg tablet 50 mg PO ONCE PRN (Reason: migraine headache) Qty: 10 RF: 1 Referrals: García oBlton MD [Primary Care Provider] -
[2020-06-03 21:54] LABS: Culture Indicated Urine Cult Not Indicated; Urine Comments Microscopic Normal
[2020-06-03 22:10] VITALS: BP 149/75; PULSE 64; RESP 16; O2SAT 98
[2020-06-03 23:43] VITALS: BP 149/86; PULSE 61; RESP 18; O2SAT 98
== END 2020-06-03 23:44 | disposition home or self-care (01) ==
PROVIDERS: Emergency Provider Emergency Medicine; PCP Family Medicine
DX: M54.16 Radiculopathy, lumbar region (principal)
CPT/HCPCS: 36415; 73706; 80053; 81001; 81003; 85025; 85379; 85610; 86140; 99284; Q9967

== ENCOUNTER → 2020-06-15 07:12 | Outpatient (CLI) | payer MEDICARE, SELFPAY ==
--- NOTE | 2020-06-15 07:13 | DI.US.S_ITS ---
PROCEDURE: US ABDOMEN LIMITED INDICATIONS: RULE OUT MASS/LESION/LYMPH NODES LEFT GROIN/LOWER QUADRANT TECHNIQUE: Real-time scanning was performed of the left lower quadrant, left adnexal region, left groin with Valsalva, with image documentation. COMPARISON: [place], [place], MD PET CT FUSION SKULL 2 THIGH, 06/10/2020, 10:17. CT abdomen and pelvis 05/29/2020. FINDINGS: No mass or enlarged lymph nodes. No fluid collection. No hernia. IMPRESSION: No mass or enlarged lymph nodes in the region of clinical concern. Dictated by: Gabriel Higgins M.D. on 06/15/2020 at 9:23 Approved by: Gabriel Higgins M.D. on 06/15/2020 at 9:27
== END ==
PROVIDERS: PCP Family Medicine; Referring Provider Specialist; Visit Provider Specialist
DX: R19.04 Left lower quadrant abdominal swelling, mass and lump (principal)
CPT/HCPCS: 76705

== ENCOUNTER → 2020-06-22 09:47 | Outpatient (CLI) | payer MEDICARE, SELFPAY ==
--- NOTE | 2020-06-22 | DI.RAD.S_ITS ---
PROCEDURE: XR LUMBAR SPINE 2-3V INDICATIONS: low back pain TECHNIQUE: 3 views of the lumbar spine were acquired. COMPARISON: [facility], CR, XR LUMBAR SPINE 2-3V, 04/29/2020, 10:04. FINDINGS: Bones: No fracture. Multilevel degenerative endplate sclerosis and spurring. Diffuse facet arthropathy. Moderate narrowing of the L4-L5 disc space. Grade 1 anterolisthesis of L4 on L5. No evidence of abnormal motion with dynamic flexion and extension lateral views. Soft tissues: Overlying bowel gas pattern is normal. No suspicious soft tissue calcifications. IMPRESSION: Lumbar spondylosis and grade 1 anterolisthesis of L4 on L5. No evidence of abnormal motion with dynamic flexion and extension lateral views. Dictated by: Aroldo Ogden M.D. on 06/22/2020 at 13:05 Approved by: Aroldo Ogden M.D. on 06/22/2020 at 13:10
== END ==
PROVIDERS: PCP Family Medicine; Referring Provider Orthopaedic Surgery Orthopaedic Surgery of the Spine; Visit Provider Orthopaedic Surgery Orthopaedic Surgery of the Spine
DX: M54.5 Low back pain (principal); M47.816 Spondylosis without myelopathy or radiculopathy, lumbar region; M43.16 Spondylolisthesis, lumbar region
CPT/HCPCS: 72100

== ENCOUNTER → 2020-07-28 09:21 | Outpatient (CLI) | payer MEDICARE, SELFPAY ==
[2020-07-28 12:10] LABS: COVID19 -Nasal RAPID Negative (Negative)
== END ==
PROVIDERS: PCP Family Medicine; Visit Provider Specialist
DX: Z20.822 Contact with and (suspected) exposure to COVID-19 (principal)
CPT/HCPCS: 87635

== ENCOUNTER 2020-07-29 09:31 | Observation (INO) | payer MEDICARE, SELFPAY ==
[2020-07-22 08:29] VITALS: BMI 24.4
[2020-07-29] VITALS (21 sets, daily range): BP systolic 102–138; BP diastolic 49–80; PULSE 57–108; RESP 14–18; TEMP 36–36.9; O2SAT 93–99; BMI 24.4
--- NOTE | 2020-07-29 | PATH_ITS ---
[facility] Accession Number: [id number] . 01 Material submitted: . spleen - SPLEEN . 01 Clinical history: . INPT . 01 Diagnosis: Spleen, Laparoscopic Splenectomy: Vascular lesion, final diagnosis pending outside expert consultation with Benjie Jaime M.D. ([employer], [place], [place]); reported as an addendum. [facility] 08/12/2020 1108 Local . 01 Comment: Sections show red pulp expansion with abnormal, altered sinusoidal architecture, cystic blood-filled spaces, and a rare thrombus. A panel of immunostains is obtained to further characterize, with the controls stained appropriately. The cells of interest show the following results: . CD34: Uniformly positive. ERG-1: Uniformly positive. CD8: Uniformly positive. CD68: Uniformly positive. CD4: Uniformly positive. CD21: Negative. CD3: Negative on sinusoidal lining cells. PAX5: Negative on sinusoidal lining cells. Ki-67: Less than 5%. . The preliminary results of this case are verbally provided by Dr. Bocanegra to Helen (of Dr. King's office) on 07/13/2020 at 1:30 p.m. 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 . Based on morphology, the differential for this vascular lesion includes but, is not limited to, the possibilities of a hemangioma, littoral cell angioma, splenic hamartoma and peliosis; however, the immunophenotype may not definitively distinguish between these entities, although the negative CD3 and PAX 5 on the sinusoidal lining cells rule against a T-cell lymphoma and hairy cell leukemia, respectively. . This case is also reviewed by hematopathologist Dr. Uma Jones who concurs with the given interpretation. . At this juncture, we are sending this case to an expert in splenic pathology, Dr. Benjie Jaime, with the results of his consultation and the final diagnosis reported as an addendum. . * This test was developed and its performance characteristics determined by [employer]. It has not been cleared or approved by the U.S. Food and Drug Administration. The FDA has determined that such clearance or approval is not necessary. This test is used for clinical purposes. It should not be regarded as investigational or for research. . 01 Electronically signed: . Arely Bocanegra MD, Pathologist NPI- [id number] . 01 Gross description: . The specimen is received in formalin, labeled spleen and consists of a 100-gram morcellated spleen measuring 14.0 x 9.0 x 6.0 cm in aggregate. The external surface is pink-purple and smooth. Sectioning reveals red-brown cut surfaces with indiscrete white pulp. [employer] Team Member sections are submitted in cassettes A1-A3. ([id number]) . ADDITIONAL CASSETTES: A4-A8: additional plastic products sales representative sections. ([id number]) /MRV 08/05/2020 1347 Local . 01 Pathologist provided ICD-10: D73.89 . 01 CPT . 811503, M68780, [id number] Performed at: [address] [facility] [address], [place], [place] [id number] MD Victoriano Vogel MD Phone: [phone]
--- NOTE | 2020-07-29 10:43 | P.OP.PRE_ITS ---
Pre-operative Note COVID-19 COVID-19 status: Negative Result date/Date tested (Pos, Neg/Pending): 07/28/20 Interval Note History & Physical reviewed/Exam performed by Physician: Yes Changes to H&P: Yes H&P completed within 30 days and has changed as indicated here:: Reviewed her operation with her again. Potential for an open procedure was discussed. She has received initial vaccinations for everything but the multi they Lint meningococcus as it conflicts with 1 of the other vaccinations she received. Because of the potential for neoplasm I did not feel further delay was appropriate. She will receive any additional vaccinations necessary postoperatively. I did review her CT scan with the radiologist. She has no abnormal vascular supply to the spleen and it does not appear to be anything o ther than normal vascularity.
[2020-07-29] MEDS: LACTATED RINGERS 1,000 ML 42 ML IV ×3 (10:46→16:15)
[2020-07-29] MEDS: CEFAZOLIN 2 GM/100 ML FROZ.PIGGY IV (11:21)
--- NOTE | 2020-07-29 12:03 | SUR.OPER ---
Modified right side down Lateral on padded OR bed, langley bag, bottom leg bent with gel pad under knee to foot, upper leg straight and supported with pillows. Upper arms supported by pillows and secured with tape over against body,Safety belt at hip, tape over blanket lower legs.
[2020-07-29] MEDS: BUPIVACAINE 0.5% (PF) VIAL 30 ML INJ (12:30)
--- NOTE | 2020-07-29 13:53 | P.OP_ITS ---
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 Closure Type: primary Specimen(s): other (Spleen morcellated) Prosthetic devices, grafts, tissues, transplants, or devices: None Estimated Blood Loss (mL): 300 Blood products transfused: none Procedure in detail: The patient was placed supine on a beanbag on the operating room table and underwent general endotracheal anesthesia. She was then placed in partial right lateral decubitus and prepped and draped in the usual fashion. An incision was made an inferior cyst umbilical scar and carried down under dire ct vision and the peritoneal cavity. A 12 mm port was inserted after inserting stay sutures of 0 Vicryl in the fascia. The abdomen is insufflated. Three additional ports were placed under the left costal margin. Initially these were all 5 mm ports but the middle port was replaced with a 12 mm port as the operation progressed to all for insertion of the vascular stapling device. Spleen was identified. Adhesions of the splenic flexure were taken with the Harmonic scalpel and the colon was kept out of the field. The inferior pole was elevated and dissection was begun in this area. Using Harmonic scalpel adhesions to these inferior pole were divided. There was a small amount of bleeding which progressed to a larger amount of bleeding and we applied clips and then isolated the vessel and applied a vascular stapler. This controlled this bleeding additional bleeding however ensued superior to this we came across the splenic hilum in steps 1st dividing arteries which cause the spleen to become discolored. We then divided the splenic vein using a vascular stapler. Ultimately multiple fires of the vascular staple across the hilum freed these attachments to the spleen.. The vascular supply from the stomach (that is the short gastrics) were divided with Harmonic scalpel at a convenient point in the operation once bleeding had been controlled. The spleen was detached placed in a bag and removed through the umbilical port by morcellating it in the bag. There was no spillage of contents in the abdomen or the wound. The left upper quadrant was irrigated and carefully examined. There did not appear to be an injury to the pancreas and there did not appear to be an injury to the stomach. There also was no bleeding. The left upper quadrant was irrigated suctioned free of fluid and the instrumentation removed. A Levar Montoya was used to close the fascia at the 2nd 12 mm port that was inserted under the left costal margin using a suture of 0 Vicryl. The stay sutures at the umbilicus were tied after placing a 2 0 PDS between them. The wounds were irrigated. 4-0 Vicryl was used to close the incisions in all locations. One 3-0 Vicryl was used to secure the umbilicus back down to the fascia. Local anesthetic was infiltrated. Steri-Strips and Mastisol were applied and the patient was flattened, extubated and taken the recovery room good condition. Complications: none Post-operative Condition: stable Disposition: PACU Plan for aftercare: Observation
[2020-07-29] MEDS: OXYCODONE/ACETAMINOPHEN 5/325 TABLET 1 TAB PO ×2 (14:00→14:31)
[2020-07-29] MEDS: HYDROMORPHONE 2 MG INJ IV (14:00)
[2020-07-29] MEDS: ONDANSETRON 4 MG/2 ML INJ IV ×2 (14:01→20:07)
[2020-07-29] MEDS: ACETAMINOPHEN 325 MG TABLET 650 MG PO (16:15)
[2020-07-29] MEDS: HYDROMORPHONE 1 MG INJ IV ×3 (17:08→23:22)
[2020-07-29] MEDS: GABAPENTIN 300 MG CAPSULE PO (21:05)
--- NOTE | 2020-07-29 23:39 | PC.NURSE ---
Patient is alert and oriented. Breath sounds CTA with RA sat of 96%. HRR. Denies nausea but has not yet eaten and declines offer of food. BT hypoactive and patient denies flatus. Is having 9/10 left side under ribs abdominal pain and was medicated by previous RN with IV Dilaudid. Bandaids to abdomen x 4 are all CDI. Denies dysuria, frequency or urgency with urination. Able to move self in bed. Reported to have gotten out of bed with SBA; patient states she feels generally weak. 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 Wearing bilateral calf SCD's. Fall risk score is moderate and bed alarm is activated.
[2020-07-30] MEDS: HYDROMORPHONE 1 MG INJ IV ×2 (02:18→05:42)
[2020-07-30 05:45] VITALS: BP 134/77; PULSE 81; RESP 16; TEMP 37; O2SAT 94
[2020-07-30 05:48] VITALS: O2SAT 93
[2020-07-30 06:37] LABS: Add Manual Diff / Slide Review NO; Basophils Absolute Auto 0 /uL (0-100); Basophils Percent Auto 0.1 % (0-2); Eosinophils Absolute Auto 0 /uL (0-450); Hematocrit 30.1 % (36-46); Hemoglobin 10.1 g/dL (12.0-16.0); Lymphocytes Absolute Auto 900 /uL (1100-4500); Mean Corpuscular HGB Conc 33.6 % (30-36); Mean Corpuscular Hemoglobin 31.2 PG (26-34); Mean Corpuscular Volume 93.1 fL (80-100); Monocytes Absolute Auto 1400 /uL (0-900); Monocytes Percent Auto 12.3 % (3-14); Neutrophils Absolute Auto 8800 /uL (1500-7000); Neutrophils Percent Auto 79.6 % (50-75); Platelet Count 283 X10^3/uL (150-400); Red Blood Cell Count 3.24 X10^6/uL (4.0-5.2); Red Cell Distribution Width 14.4 % (11.6-14.8); White Blood Cell Count 11.1 X10^3/uL (4.5-11.0)
[2020-07-30 07:45] VITALS: BP 123/64; PULSE 81; RESP 20; TEMP 36.6; O2SAT 93
[2020-07-30 08:00] VITALS: BP 124/67; PULSE 82; RESP 20; TEMP 36.8; O2SAT 93
--- NOTE | 2020-07-30 08:49 | PM.DS.1 ---
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 She was brought in for a laparoscopic splenectomy. She had a series of vaccinations prior to the procedure. Discharge Providers Provider Date of admission: 07/29/20 09:31 Discharge Date: 07/30/20 Primary care physician: García Bolton MD Consults: 07/29/20 15:54 Consult to Discharge Planning Routine Comment: Discharge provider: Tray King MD Summary Hospital Course Discharge Diagnosis: Splenic lesion pathology pending. Chronic back pain Acute blood loss anemia from the splenectomy. Hospital Course: The patient underwent a laparoscopic splenectomy. She was observed overnight. Vital signs were normal. CBC normal except for a hematocrit of 30 related to the blood loss from her operation. She was tolerating p.o. liquids well. She is discharged on oral pain medication to follow up in the office. She already has an appointment. Status at Discharge Cognitive/behavioral status at discharge: at baseline, oriented Functional status at discharge: independent ambulation Overall status at discharge: patient is progressing back to baseline Exam Vital Signs (past 8 hours): - 07/30/20 05:45 07/30/20 05:48 07/30/20 08:00 Temperature 98.6 F 98.2 F Pulse Rate 81 82 Respiratory Rate 16 20 Blood Pressure 134/77 124/67 Pulse Oximetry 94 93 93 Oxygen Delivery Method Room Air Oxygen Flow Rate 0 Narrative Exam Narrative: Lungs clear. Abdomen is soft. Appropriately tender. Band-Aids are intact and dry. Objective Labs Result Diagrams: 07/30/20 06:23 Labs: Laboratory Results - last 24 hr 07/29/20 07/30/20 12:13 06:23 WBC 11.1 H RBC 3.24 L Hgb 10.1 L Hct 30.1 L MCV 93.1 MCH 31.2 MCHC 33.6 RDW 14.4 Plt Count 283 Neut % (Auto) 79.6 H Lymph % (Auto) 8.0 L [place] % (Auto) 12.3 Eos % (Auto) 0.0 L Baso % (Auto) 0.1 Neut # (Auto) 8800 H Lymph # (Auto) 900 L [place] # (Auto) 1400 H Eos # (Auto) 0 Baso # (Auto) 0 Blood Type A Positive Antibody Screen Negative PFSH Medical History Back pain of lumbar region with sciatica Breast cancer Carpal tunnel syndrome (~2007) Chronic back pain (~2006) Headache (~1976) Hearing deficit Lumbar strain Migraines (~1976) Osteoarthritis of spine with radiculopathy, lumbar region Psoriasis Splenic mass Vaginal atrophy Vaginal pain Vision disorder Yeast infection Surgical History Anesthesia History of carpal tunnel repair Status post breast lumpectomy Status post hysterectomy Family History Father Cancer Grandmother Age: 74 Dementia Essential hypertension Mother Diabetes mellitus Essential hypertension High cholesterol Mental health problem Sister Age: 67 Cancer Essential hypertension High cholesterol Grandfather No problems noted. Social History marital status: unknown household members: none occupational status: previously employed Smoking Status: Never smoker alcohol intake: current substance use type: does not use Discharge Plan Discharge Plan Patient Disposition: Home Provider Discharge Comment: Your operation went well. You did lose enough blood to be anemic and therefore you should take iron and a multiple vitamin. Discharge orders & Medications Prescriptions: New hydromorphone [Dilaudid] 2 mg tablet 2 mg PO Q4H PRN (Reason: painful procedure) Qty: 20 RF: 0 Continued acetaminophen [Acetaminophen Extra Strength] 500 mg Tablet 1,000 mg PO Q3-4H RF: 0 Discontinued ibuprofen 800 mg tablet 800 mg PO Q8H PRN (Reason: pain) Qty: 90 RF: 0 Follow up/Referrals: García Bolton MD [Primary Care Provider] - Tray King MD [Physician] - As previously scheduled (If you need to reach a doctor please call our office. If it is after hours listen to the message. You will be instructed how to page the doctor on-call for our practice. Please have a pen and paper ready to write the number down.) Discharge Health Status Multidrug resistant organism: No MDRO Diet/Activity/Treatments Diet: Diet as Tolerated Activity: Do not lift over 10 lb or strain for the next 4 weeks. Avoid pool or tub for now. Do not drive into your pain-free off medication. Skin/Wound/Dressing Care Report to your healthcare provider any signs of infection, such as:: chills, fever, increased pain, unusual drainage and unusual redness Dressing: You may remove the Band-Aids tomorrow and shower. Leave the tape under the gauze fall off on its own. Visit Report/Discharge Packet Instructions: DI for Splenectomy Discharge Data Primary Care Provider: García Bolton Quality VTE Deep Vein Thrombosis/Pulmonary Embolism Present on Admission: No
--- NOTE | 2020-07-30 09:15 | CM.IDA ---
Initial DCP Assessment Note Pt is a 65 yo female,currently staying with a friend, now POD#1 from laparoscopic splenectomy w/ Dr King. 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 Patient is indp at baseline and in the room, eager to DC w/assist from her friends to recover. Close outpatient f/u recommended. No needs expected from DC planning team although will remain available in case this changes today. TERESSA Willingham Discharge Planning/Care Management CM Discharge Assessment Start: 07/30/20 09:13 Freq: Status: Active Protocol: Document 07/30/20 09:13 MARKIE (Rec: 07/30/20 09:15 MARKIE [id number]) Discharge Planning Assessment Assigned Warehouse Material Handler TERESSA Perez DPOA/Assigned Designee Name Yana Bae (friend) [phone] Contact Information Jose Matta (friend) Advance Directives? Yes History Provided By Patient,Medical Record Prior Living Arrangements House Household Members none Type of transporation used prior to Drives own vehicle admit Independent with ADL's Yes Is patient alert and oriented? Yes Barriers to Discharge No Discharge Plan Home Transportation Arrangement Friend Referrals Initiated None needed
[2020-07-30] MEDS: GABAPENTIN 300 MG CAPSULE PO (09:47)
[2020-07-30] MEDS: HYDROMORPHONE 2 MG TABLET PO (10:12)
[2020-07-30] MEDS: HYDROMORPHONE 4 MG TABLET PO (13:30)
--- NOTE | 2020-07-30 13:55 | PC.NURSE ---
Pt discharged from the unit. Educated patient on rising slowly from the bed, discussed waiting for a few moments before standing up, and making sure to not drive while taking pain medication. I educated the patient on the importance of oral hydration and prevention of constipation while taking pain medication. Educated patient on stroke signs and symptoms, follow-up with provider. I removed her IV. Printed materials reviewed at bedside and patient signed in acknowledgement. Discharge plan, education, and patient handouts reviewed, approved and witnessed by Nidia Pillai RN.
== END 2020-07-30 14:00 | disposition home or self-care (01) ==
PROVIDERS: Admitting Provider Specialist; PCP Family Medicine; Referring Provider Specialist; Visit Provider Specialist
PROC: 07TP4ZZ Resection of Spleen, Percutaneous Endoscopic Approach (ICD-10-PCS; CPT 38120; principal; 2020-07-29 11:30)
DX: D73.89 Other diseases of spleen (principal); Z20.822 Contact with and (suspected) exposure to COVID-19
CPT/HCPCS: 38120; 36415; 85025; 86850; 86900; 86901; 87635; C9803; G0378; G0379; J0360; J0690; J1100; J1170; J2250; J2405; J2704; J3010

== ENCOUNTER → 2020-09-24 08:28 | Outpatient (CLI) | payer MEDICARE, SELFPAY ==
[2020-07-29 09:47] VITALS: BMI 24.4
[2020-09-24 09:08] LABS: Add Manual Diff / Slide Review NO; Basophils Absolute Auto 100 /uL (0-100); Basophils Percent Auto 1.5 % (0-2); Eosinophils Absolute Auto 400 /uL (0-450); Eosinophils Percent Auto 5.3 % (2-4); Hematocrit 39.4 % (36-46); Lymphocytes Absolute Auto 1900 /uL (1100-4500); Lymphocytes Percent Auto 25.7 % (25-40); Mean Corpuscular HGB Conc 32.9 % (30-36); Mean Corpuscular Hemoglobin 31.6 PG (26-34); Mean Corpuscular Volume 96.1 fL (80-100); Monocytes Absolute Auto 1100 /uL (0-900); Monocytes Percent Auto 14.6 % (3-14); Neutrophils Absolute Auto 3800 /uL (1500-7000); Neutrophils Percent Auto 52.9 % (50-75); Platelet Count 503 X10^3/uL (150-400); Red Cell Distribution Width 13.9 % (11.6-14.8); White Blood Cell Count 7.2 X10^3/uL (4.5-11.0)
[2020-09-24 09:20] LABS: Blood Urea Nitrogen 17 mg/dL (7-17); Carbon Dioxide 28 mmol/L (22-32); Chloride 104 mmol/L (98-107); Estimated Glomerular Filt Rate > 60.0 mL/min (>60); Glucose 97 mg/dL (80-110); HEMOLYSIS < 15 (0-50); Potassium 4.3 mmol/L (3.4-5.1); Sodium 139 mmol/L (137-145)
== END ==
PROVIDERS: PCP Family Medicine; Referring Provider Family Medicine; Visit Provider Family Medicine
DX: Z01.818 Encounter for other preprocedural examination (principal); M47.26 Other spondylosis with radiculopathy, lumbar region; M54.40 Lumbago with sciatica, unspecified side
CPT/HCPCS: 36415; 80048; 85025

== ENCOUNTER → 2020-12-29 17:26 | Outpatient (CLI) | payer MEDICARE, SELFPAY ==
[2020-07-29 09:47] VITALS: BMI 24.4
--- NOTE | 2020-12-29 | DI.MRI.S_ITS ---
PROCEDURE: MR LUMBAR SPINE WO CON INDICATIONS: other invertebral disc degeneration TECHNIQUE: Noncontrast sagittal T1 spin echo and T2 fast echo, sagittal STIR, axial T1 and T2 fast spin echo through the lumbar spine. In cases with scoliosis, additional coronal T2 fast spin echo may be performed. COMPARISON: [facility], CT, CT ABDOMEN PELVIS W CON, 05/29/2020, 14:26. [facility], MR, L-SPINE WITHOUT CONTRAST, 09/05/2013, 19:12. [facility], MR, L-SPINE WITHOUT CONTRAST, 08/10/2011, 17:53. [facility], CR, XR LUMBAR SPINE 2-3V, 06/22/2020, 11:04. [facility], MR, MR LUMBAR SPINE WO CON, 05/08/2020, 13:36. FINDINGS: Image quality: Excellent. Alignment and Curvature: There is mild grade 1 anterolisthesis at the L4-L5 level. No associated pars defects are seen. Bone Marrow: Marrow is of normal overall signal. No acute vertebral body compression fractures. Spinal Cord: Conus medullaris terminates at the L1 level. Visualized cord demonstrates normal signal and size. Paraspinous Soft Tissues: No paravertebral masses. T12-L1: Normal appearance. L1-L2: Normal appearance. L2-L3: Normal appearance. L3-L4: The disc height is well-preserved. Loss of disc signal is seen at this level. Moderate disc bulge is seen, which is eccentric to the right, with a mild right foraminal disc protrusion, as on series 5, image 22. A mild annular fissure can be seen laterally on the left, as on series 6, image 7. At least moderate facet hypertrophy is seen at this level. There is mild right-sided and no left-sided neural foraminal narrowing seen. Moderate central canal narrowing is seen. When comparison is made with the prior images, these findings are similar. L4-L5: Moderate loss of disc height is seen. Loss of disc signal is seen. Moderate disc bulge is seen, with a mild central disc protrusion. There is a focal annular fissure seen posteriorly. At least moderate facet hypertrophy is seen. Prior left hemilaminectomy change can be seen. There is at least moderate right-sided and moderate to severe left-sided neural foraminal narrowing seen. A degree of compression can be seen upon the exiting left L4 nerve root. Mild central canal narrowing is seen. The degree of central canal narrowing is improved compared to the preoperative MRI. L5-S1: Mild loss of disc height is seen. Loss of disc signal is seen. Mild disc bulge is seen, with a mild central disc protrusion. Moderate facet joint hypertrophy is seen. No significant neural foraminal or central canal narrowing can be seen. When comparison is made with the prior images, these findings are similar. IMPRESSION: There is improved central canal narrowing seen at the L4-L5 level compared to the prior preoperative MRI, with interval left hemilaminectomy. Dictated by: Shree Reid M.D. on 12/29/2020 at 21:54 Approved by: Shree Reid M.D. on 12/29/2020 at 21:59
== END ==
PROVIDERS: PCP Family Medicine; Referring Provider Physician Assistant Medical; Visit Provider Physician Assistant Medical
DX: M48.03 Spinal stenosis, cervicothoracic region (principal); M51.36 Other intervertebral disc degeneration, lumbar region; M48.061 Spinal stenosis, lumbar region without neurogenic claudication
CPT/HCPCS: 72148

== ENCOUNTER → 2021-03-17 08:49 | Outpatient (CLI) | payer MEDICARE, SELFPAY ==
[2020-07-29 09:47] VITALS: BMI 24.4
--- NOTE | 2021-03-17 | DI.RAD.S_ITS ---
PROCEDURE: XR LUMBAR SPINE MIN 4V INDICATIONS: Other intervertebral disc degeneration, lumbar region TECHNIQUE: 4 views of the lumbar spine acquired, including flexion and extension views. COMPARISON: [facility], , XR LUMBAR SPINE 2-3V, 06/22/2020, 11:04. FINDINGS: Bones: 5 nonrib-bearing vertebrae are present. Grade 1 anterolisthesis at L4-5. Ligamentum flavum/facet arthrosis, most prominent at L5-S1. No vertebral body compression fractures. No suspicious bony lesions. The disc heights are maintained. Soft tissues: Overlying bowel gas pattern is normal. No suspicious soft tissue calcifications. Flexion/extension: There is normal range of motion, with preserved normal alignment. IMPRESSION: No significant interval change. Dictated by: Oseas Tavares M.D. on 03/17/2021 at 9:16 Approved by: Oseas Tavares M.D. on 03/17/2021 at 9:18
== END ==
PROVIDERS: PCP Family Medicine; Referring Provider Physician Assistant Medical; Visit Provider Physician Assistant Medical
DX: M51.36 Other intervertebral disc degeneration, lumbar region (principal); M43.16 Spondylolisthesis, lumbar region; M47.817 Spondylosis without myelopathy or radiculopathy, lumbosacral region
CPT/HCPCS: 72110

== ENCOUNTER → 2021-06-01 08:23 | Outpatient (CLI) | payer MEDICARE, SELFPAY ==
[2020-07-29 09:47] VITALS: BMI 24.4
[2021-06-01 09:21] LABS: Add Manual Diff / Slide Review NO; Basophils Absolute Auto 100 /uL (0-100); Basophils Percent Auto 1.1 % (0-2); Eosinophils Absolute Auto 200 /uL (0-450); Hematocrit 39.6 % (36-46); Hemoglobin 12.8 g/dL (12.0-16.0); Lymphocytes Absolute Auto 2000 /uL (1100-4500); Lymphocytes Percent Auto 24.9 % (25-40); Mean Corpuscular HGB Conc 32.4 % (30-36); Mean Corpuscular Hemoglobin 30.3 PG (26-34); Mean Corpuscular Volume 93.7 fL (80-100); Monocytes Absolute Auto 1100 /uL (0-900); Monocytes Percent Auto 13.1 % (3-14); Neutrophils Absolute Auto 4700 /uL (1500-7000); Neutrophils Percent Auto 58.9 % (50-75); Platelet Count 543 X10^3/uL (150-400); Red Blood Cell Count 4.22 X10^6/uL (4.0-5.2); Red Cell Distribution Width 13.8 % (11.6-14.8)
[2021-06-01 10:09] LABS: Alanine Aminotransferase 66 IU/L (<35); Albumin 4.4 g/dL (3.5-5.0); Albumin Globulin Ratio 1.4 (1.0-2.8); Alkaline Phosphatase 118 U/L (38-126); Aspartate Aminotransferase 95 IU/L (14-36); BUN Creatinine Ratio 18.7 (6-22); Bilirubin Total 0.5 mg/dL (0.2-1.3); Blood Urea Nitrogen 14 mg/dL (7-17); Calcium 9.6 mg/dL (8.4-10.2); Carbon Dioxide 31 mmol/L (22-32); Chloride 104 mmol/L (98-107); Estimated Glomerular Filt Rate > 60.0 mL/min (>60); Globulin 3.1 g/dL (1.7-4.1); Glucose 92 mg/dL (80-110); HEMOLYSIS < 15 (0-50); Sodium 138 mmol/L (137-145); Total Protein 7.5 g/dL (6.3-8.2)
== END ==
PROVIDERS: PCP Family Medicine; Referring Provider Family Medicine; Visit Provider Family Medicine
DX: Z01.818 Encounter for other preprocedural examination (principal); M54.40 Lumbago with sciatica, unspecified side; M47.26 Other spondylosis with radiculopathy, lumbar region
CPT/HCPCS: 36415; 80053; 85025

== ENCOUNTER 2021-08-02 17:48 | Emergency (ER) | payer MEDICARE, SELFPAY ==
[2020-07-29 09:47] VITALS: BMI 24.4
[2021-08-02 18:07] VITALS: BP 186/85; PULSE 63; RESP 16; TEMP 36.9; O2SAT 98; BMI 26.4
--- NOTE | 2021-08-02 18:13 | DI.US.S_ITS ---
PROCEDURE: PERIP VENOUS LOW EXTREM LT INDICATIONS: s/p back surgery with swelling from groin to ankle TECHNIQUE: Real-time imaging, as well as color and pulse Doppler interrogation, were performed of the lower extremity deep veins from the inguinal ligament to the popliteal fossa. COMPARISON: [facility], , [facility] VENOUS LOW EXTREM LT, 05/28/2020, 21:04. FINDINGS: The common femoral, femoral and popliteal veins are normally compressible, and free of intraluminal thrombus. Color and pulse Doppler demonstrate normal phasic intraluminal flow. There is normal augmentation response to distal compression maneuver. IMPRESSION: No left lower extremity DVT. Dictated by: Gabriel Higgins M.D. on 08/02/2021 at 19:17 Approved by: Gabriel Higgins M.D. on 08/02/2021 at 19:18
--- NOTE | 2021-08-02 19:44 | ED.EXTPRO ---
HPI - Extremity Problem General Chief complaint: Extremity Problem,Nontraumatic Stated complaint: left leg swelling post op dr. suero Time Seen by Provider: 08/02/21 19:41 History of Present Illness HPI Narrative: Patient is a 66-year-old female who had recent back surgery 7 weeks ago with [facility] presenting today with left leg swelling. She says her leg has been swollen for the last 3 days. She says she has been up and walking she walks about 2 miles a day but has been unable to do so due to left leg swelling. She is swollen in her thigh and knee down to her ankle. She has no numbness tingling or weakness. Her back is feeling fine. She is having some urinary frequency but no dysuria or fevers. She has no abdominal pain nausea vomiting. She has no chest pain shortness of breath palpitations. There is no rash or redness. Related Data Home Medications Medication Instructions Recorded Confirmed gabapentin 600 mg tablet 900 mg PO TID tab 06/01/21 06/28/21 Previous Rx's Medication Instructions Recorded ibuprofen 800 mg tablet See Rx Instructions .ROUTE 05/05/21 .COMPLEX #60 tab tramadol 100 mg tablet 100 mg PO TID PRN #60 tab 05/18/21 furosemide 20 mg tablet (Lasix) 20 mg PO DAILY #3 tab 08/02/21 Allergies Allergy/AdvReac Type Severity Reaction Status Date / Time morphine [MORPHINE] Allergy Severe SOB/ANAPHYL Verified 06/28/21 15:13 AXIS ketoconazole [KETOCONAZOLE] Allergy Intermediate pain, rash Verified 06/28/21 15:13 Review of Systems Review of Systems Narrative: GENERAL: Denies chills, fatigue, malaise, fever, sweats, travel HEENT: Denies sinus pain, ear pain, sore throat, difficulty swallowing, neck pain RESPIRATORY: Denies dyspnea, cough, wheezing, hemoptysis, sputum. CARDIOVASCULAR: Denies chest pain, palpitations, orthopnea, edema GASTROINTESTINAL: Denies nausea, vomiting, abdominal pain, diarrhea, constipation, melena. : Denies dysuria, frequency, incontinence, hematuria, urinary retention, flank pain. MUSCULOSKELETAL: Left leg swelling SKIN: No rash, no erythema, no pruritus NEUROLOGIC: Denies weakness, dizziness, headache, numbness, change in speech, confusion PSYCHIATRIC: No concerning psychosocial issues. 12 point review of systems is negative except for those stated above and HPI Patient History Medical History Back pain of lumbar region with sciatica Breast cancer Carpal tunnel syndrome (~2007) Chronic back pain (~2006) Headache (~1976) Hearing deficit Lumbar strain Migraines (~1976) Osteoarthritis of spine with radiculopathy, lumbar region Psoriasis Splenic mass Vaginal atrophy Vaginal pain Vision disorder Yeast infection Surgical History Anesthesia History of carpal tunnel repair Status post breast lumpectomy Status post hysterectomy Family History Father Cancer Grandmother Age: 75 Dementia Essential hypertension Mother Diabetes mellitus Essential hypertension High cholesterol Mental health problem Sister Age: 68 Cancer Essential hypertension High cholesterol Grandfather No problems noted. Social History marital status: unknown household members: none occupational status: previously employed Smoking Status: Never smoker alcohol intake: current substance use type: does not use Smoking Status: Never smoker alcohol intake frequency: holidays/special occasions only Substance Use Type: does not use Exam Initial Vital Signs Initial Vital Signs: Vital Signs Temperature 98.5 F 08/02/21 18:07 Pulse Rate 63 08/02/21 18:07 Respiratory Rate 16 08/02/21 18:07 Blood Pressure 186/85 H 08/02/21 18:07 Pulse Oximetry 98 08/02/21 18:07 GENERAL: Alert well-appearing 56-year-old female and in no acute distress. HEENT: Head atraumatic,EOMI, pupils reactive, face symmetric, moist mucous membranes CARDIOVASCULAR: Regular rate and rhythm without murmurs, rubs or gallops. RESPIRATORY: Breath sounds equal bilaterally, no wheezes rales or rhonchi. ABDOMEN: Soft, nontender. Normoactive bowel sounds all 4 quadrants. No guarding or rebound. : No CVA tenderness EXTREMITIES: Normal range of motion, no clubbing or edema. Neurovascularly intact Left leg is notably swollen swelling around his thigh knee and ankle. Good femoral pulse good distal pedal pulse no erythema decreased range of motion at knee secondary to swelling. NEUROLOGICAL: Alert and oriented x4.Normal gait and speech. SKIN: Warm, dry, no laceration, no petechiae, no rashes or lesions. Course Orders Ordered: ED Orders 08/02/21 18:13 US periph venous low extrem lt Stat 08/02/21 20:03 CT abdomen pelvis w con Stat 08/02/21 20:15 BNP [NT-proBNP (BNP-Adult 18+)] Stat CBC Auto Diff [Complete Blood Count AUTO DIFF] Stat CMP [Comprehensive Metabolic Panel] Stat 08/02/21 20:35 Urine Culture Stat Urine Microscopic Stat Vital Signs Vital signs: Vital Signs - 8 hr 08/02/21 18:07 08/02/21 22:19 Temperature 98.5 F Pulse Rate 63 64 Respiratory Rate 16 18 Blood Pressure 186/85 H 174/82 H Pulse Oximetry 98 100 MDM - Extremity (Nontraumatic) Lab Data Result diagrams: 08/02/21 20:15 08/02/21 20:15 Labs: Lab Results 08/02/21 08/02/21 08/02/21 Range/Units 20:15 20:15 20:15 WBC 8.5 (4.5-11.0) X10^3/uL RBC 4.04 (4.0-5.2) X10^6/uL Hgb 12.5 (12.0-16.0) g/dL Hct 38.0 (36-46) % MCV 94.0 (80-100) fL MCH 31.0 (26-34) PG MCHC 33.0 (30-36) % RDW 13.7 (11.6-14.8) % Plt Count 538 H (150-400) X10^3/uL Neut % (Auto) 62.0 (50-75) % Lymph % (Auto) 26.0 (25-40) % Crosby % (Auto) 9.6 (3-14) % Eos % (Auto) 1.3 L (2-4) % Baso % (Auto) 1.1 (0-2) % Neut # (Auto) 5300 (4908-7625) /uL Lymph # (Auto) 2200 (4130-2819) /uL Crosby # (Auto) 800 (0-900) /uL Eos # (Auto) 100 (0-450) /uL Baso # (Auto) 100 (0-100) /uL Sodium 141 (137-145) mmol/L Potassium 4.0 (3.4-5.1) mmol/L Chloride 110 H (98-107) mmol/L Carbon Dioxide 23 (22-32) mmol/L BUN 16 (7-17) mg/dL Creatinine 0.58 (0.52-1.04) mg/dL Estimated GFR > 60 (>60) mL/min BUN/Creatinine Ratio 27.6 H (6-22) Glucose 91 (80-110) mg/dL Calcium 9.2 (8.4-10.2) mg/dL Total Bilirubin 0.4 (0.2-1.3) mg/dL AST 44 H (14-36) IU/L ALT 47 H (<35) IU/L Alkaline Phosphatase 146 H (38-126) U/L NT-Pro-B Natriuret Pep 71 (<125) pg/mL Total Protein 7.6 (6.3-8.2) g/dL Albumin 4.4 (3.5-5.0) g/dL Globulin 3.2 (1.7-4.1) g/dL Albumin/Globulin Ratio 1.4 (1.0-2.8) Urine RBC (0-5/HPF) Urine WBC (0-5/HPF) Ur Squamous Epith Cells (0-5/HPF) Urine Bacteria (None) Ur Culture Indicated? 08/02/21 Range/Units 20:35 WBC (4.5-11.0) X10^3/uL RBC (4.0-5.2) X10^6/uL Hgb (12.0-16.0) g/dL Hct (36-46) % MCV (80-100) fL MCH (26-34) PG MCHC (30-36) % RDW (11.6-14.8) % Plt Count (150-400) X10^3/uL Neut % (Auto) (50-75) % Lymph % (Auto) (25-40) % Crosby % (Auto) (3-14) % Eos % (Auto) (2-4) % Baso % (Auto) (0-2) % Neut # (Auto) (8053-5785) /uL Lymph # (Auto) (3076-7515) /uL Crosby # (Auto) (0-900) /uL Eos # (Auto) (0-450) /uL Baso # (Auto) (0-100) /uL Sodium (137-145) mmol/L Potassium (3.4-5.1) mmol/L Chloride (98-107) mmol/L Carbon Dioxide (22-32) mmol/L BUN (7-17) mg/dL Creatinine (0.52-1.04) mg/dL Estimated GFR (>60) mL/min BUN/Creatinine Ratio (6-22) Glucose (80-110) mg/dL Calcium (8.4-10.2) mg/dL Total Bilirubin (0.2-1.3) mg/dL AST (14-36) IU/L ALT (<35) IU/L Alkaline Phosphatase (38-126) U/L NT-Pro-B Natriuret Pep (<125) pg/mL Total Protein (6.3-8.2) g/dL Albumin (3.5-5.0) g/dL Globulin (1.7-4.1) g/dL Albumin/Globulin Ratio (1.0-2.8) Urine RBC None seen (0-5/HPF) Urine WBC 5-10/hpf H (0-5/HPF) Ur Squamous Epith Cells 1-5 /hpf (0-5/HPF) Urine Bacteria Occasional (0-1) (None) Ur Culture Indicated? Culture not indicate Urine Dip Bedside Urine Glucose Negative Bedside Urine Bilirubin - Negative Bedside Urine Ketone +/- 5 Urine Specific Dresser 1.015 Bedside Urine Occult Blood +/- Bedside Urine pH 6.0 Bedside Urine Protein - Negative Bedside Urine Urobilinogen - Negative Bedside Urine Nitrite - Negative Bedside Urine Leukocytes + 70 Esterase Imaging Data US - DVT: Radiologist's Impression: ?PhucTiffani Carlo MR#: [id number] : 1955 Acct:[id number] Age/Sex: 66 / F Date of Service: 08/02/21 Loc: ED Accession Number: [id number] ?? Procedure: US periph venous low extrem lt Ordering Provider: Erma Morales D.O. PROCEDURE:? US PERIPH VENOUS LOW EXTREM LT ? INDICATIONS:? s/p back surgery with swelling from groin to ankle ? TECHNIQUE:? Real-time imaging, as well as color and pulse Doppler interrogation, were performed of the lower extremity deep veins from the inguinal ligament to the popliteal fossa.? ? COMPARISON:? Merged With [facility], US, US PERIPH VENOUS LOW EXTREM LT, 05/28/2020, 21:04. ? FINDINGS:? The common femoral, femoral and popliteal veins are normally compressible, and free of intraluminal thrombus.? Color and pulse Doppler demonstrate normal phasic intraluminal flow.? There is normal augmentation response to distal compression maneuver. ? ? IMPRESSION:? No left lower extremity DVT. ? ? Dictated by: Gabriel Higgins M.D. on 08/02/2021 at 19:17 ? ? CT scan - abdomen/pelvis: Radiologist's Impression: Tiffani Friend MR#: [id number] : 1955 Acct:[id number] Age/Sex: 66 / F Date of Service: 08/02/21 Loc: ED Accession Number: [id number] ?? Procedure: CT abdomen pelvis w con Ordering Provider: Erma Morales D.O. PROCEDURE:? CT ABDOMEN PELVIS W CON ? INDICATIONS:? significant left leg swelling, 7weeks post back surg, us neg ? TECHNIQUE:? After the administration of IV contrast, axial sections were acquired from the lung bases to the pubic symphysis.? Coronal and sagittal reformats were performed.? For radiation dose reduction, the following was used:? automated exposure control, adjustment of mA and/or kV according to patient size. ? COMPARISON:? Merged With [facility], CT, CT ABDOMEN PELVIS W CON, 05/29/2020, 14:26. ? FINDINGS:? Image quality:? Excellent.? ? Lung bases:? Clear lung bases.? No hiatal hernia. Heart:? The lower visualized aspect of the heart demonstrates normal size. ? ? ABDOMEN: Liver:? 7 mm round focus of arterial enhancement in segment VIII near the liver dome, presumably a flash fill hemangioma.? This is seen as a hypodensity on the prior study.? Liver is otherwise within normal limits. Gallbladder:? Normal wall thickness. Biliary ducts:? Nondilated. Pancreas:? Normal. Spleen:? Surgically absent. Adrenal Glands:? No nodules. Kidneys and Ureters:? Symmetric and uniform enhancement.? No hydronephrosis or nephrolithiasis.? No hydroureter or ureterolithiasis. ? Stomach and Bowel:? Stomach, small bowel loops, and colon are unremarkable.? The appendix is surgically absent.? There is a slightly increased quantity of solid stool throughout the colon. Peritoneum:? No abnormal intraperitoneal fluid.? No free air.? ? Ventral Wall: ? No hernia.? Abdominal Nodes:? No retroperitoneal or mesenteric adenopathy by size criteria.? Vessels:? The aorta is normal caliber.? The inferior vena cava, common iliac, internal, and external iliac veins are mildly ectatic.? No visible intraluminal filling defects. ? PELVIS: Pelvic Organs:? The uterus is absent.? No adnexal masses. Bladder:? Normal. Pelvic Nodes:? No adenopathy. Miscellaneous: No inguinal hernias are seen. ? ? ? Bones:? Posterior fusion at L4-[address] and disc [address].? Hardware appears intact and in expected position.? There is mild subcutaneous edema dorsal to the operative level without discrete or in capsulated subcutaneous or intramuscular fluid collection. ? ? IMPRESSION:? ? 1. 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 Given the symmetry, more proximal process is suspected, potentially heart failure or possibly fluid overload.? Chronic venous stasis may also be present. ? 2. There is no acute appearing intraluminal or extrinsic obstruction of blood return. ? 3. Expected appearance post lower lumbar fusion. ? ? ? Dictated by: Ary Simmons M.D. on 08/02/2021 at 21:44 ? ? MDM Narrative Medical decision making narrative: Patient does have swelling of her left leg she has got good pulses. DVT study is negative. She is also 7 weeks out and has been walking 2 miles a day as and is trying to be active, would be unlikely that she has a DVT not detected by ultrasound. Concern for something more proximal causing restriction and inhibiting blood flow. CT is negative but does show some my mild pelvic patient on possible congestive heart failure. However patient has no chest pain or shortness of breath she has unilateral leg swelling. BNP is also negative. However at this time I will give her a few days of Lasix to see if that helps improve. I do recommend outpatient follow-up. Discharge Plan Departure Patient Disposition: Home Clinical Impression: Edema of left lower extremity Instructions: DI for Edema Due to Venous Stasis Activity Restrictions/Additional Instructions: *You have been diagnosed with lower extremity edema *What to do: At this time let us try mild water pill. There is no cause of obstruction no blood clot. May need to have further evaluation with her primary care provider. *Continue to take medications as directed Lasix 20 mg once in the morning for 3 days--> [facility] [place] *Follow up with your primary care provider in 2-3 days or call [phone] *Return to ER if you should have increased leg swelling, pain, chest pain, shortness of breath or any new, worsening or concerning symptoms Prescriptions: New furosemide [Lasix] 20 mg tablet 20 mg PO DAILY Qty: 3 0RF No Action ibuprofen 800 mg tablet See Rx Instructions .ROUTE .COMPLEX Qty: 60 0RF Dose Instruction: TAKE 1 TABLET BY MOUTH EVERY 8 HOURS Rx Instructions: TAKE 1 TABLET BY MOUTH EVERY 8 HOURS gabapentin 600 mg tablet 900 mg PO TID 0RF tramadol 100 mg tablet 100 mg PO TID PRN (Reason: pain) Qty: 60 0RF Referrals: García Bolton MD [Primary Care Provider] -
--- NOTE | 2021-08-02 20:03 | DI.CT.S_ITS ---
PROCEDURE: CT ABDOMEN PELVIS W CON INDICATIONS: significant left leg swelling, 7weeks post back surg, us neg TECHNIQUE: After the administration of IV contrast, axial sections were acquired from the lung bases to the pubic symphysis. Coronal and sagittal reformats were performed. For radiation dose reduction, the following was used: automated exposure control, adjustment of mA and/or kV according to patient size. COMPARISON: [facility], CT, CT ABDOMEN PELVIS W CON, 05/29/2020, 14:26. FINDINGS: Image quality: Excellent. Lung bases: Clear lung bases. No hiatal hernia. Heart: The lower visualized aspect of the heart demonstrates normal size. ABDOMEN: Liver: 7 mm round focus of arterial enhancement in segment VIII near the liver dome, presumably a flash fill hemangioma. This is seen as a hypodensity on the prior study. Liver is otherwise within normal limits. Gallbladder: Normal wall thickness. Biliary ducts: Nondilated. Pancreas: Normal. Spleen: Surgically absent. Adrenal Glands: No nodules. Kidneys and Ureters: Symmetric and uniform enhancement. No hydronephrosis or nephrolithiasis. No hydroureter or ureterolithiasis. Stomach and Bowel: Stomach, small bowel loops, and colon are unremarkable. The appendix is surgically absent. There is a slightly increased quantity of solid stool throughout the colon. Peritoneum: No abnormal intraperitoneal fluid. No free air. Ventral Wall: No hernia. Abdominal Nodes: No retroperitoneal or mesenteric adenopathy by size criteria. Vessels: The aorta is normal caliber. The inferior vena cava, common iliac, internal, and external iliac veins are mildly ectatic. No visible intraluminal filling defects. PELVIS: Pelvic Organs: The uterus is absent. No adnexal masses. Bladder: Normal. Pelvic Nodes: No adenopathy. Miscellaneous: No inguinal hernias are seen. Bones: Posterior fusion at L4-[address] and disc [address]. Hardware appears intact and in expected position. There is mild subcutaneous edema dorsal to the operative level without discrete or in capsulated subcutaneous or intramuscular fluid collection. IMPRESSION: 1. 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 Given the symmetry, more proximal process is suspected, potentially heart failure or possibly fluid overload. Chronic venous stasis may also be present. 2. There is no acute appearing intraluminal or extrinsic obstruction of blood return. 3. Expected appearance post lower lumbar fusion. Dictated by: Ary Simmons M.D. on 08/02/2021 at 21:44 Approved by: Ary Simmons M.D. on 08/02/2021 at 21:53
[2021-08-02 20:26] LABS: Add Manual Diff / Slide Review NO; Basophils Absolute Auto 100 /uL (0-100); Basophils Percent Auto 1.1 % (0-2); Eosinophils Absolute Auto 100 /uL (0-450); Eosinophils Percent Auto 1.3 % (2-4); Hemoglobin 12.5 g/dL (12.0-16.0); Lymphocytes Absolute Auto 2200 /uL (1100-4500); Monocytes Absolute Auto 800 /uL (0-900); Monocytes Percent Auto 9.6 % (3-14); Neutrophils Absolute Auto 5300 /uL (1500-7000); Platelet Count 538 X10^3/uL (150-400); Red Blood Cell Count 4.04 X10^6/uL (4.0-5.2); Red Cell Distribution Width 13.7 % (11.6-14.8); White Blood Cell Count 8.5 X10^3/uL (4.5-11.0)
[2021-08-02 20:39] LABS: Alanine Aminotransferase 47 IU/L (<35); Albumin 4.4 g/dL (3.5-5.0); Albumin Globulin Ratio 1.4 (1.0-2.8); Alkaline Phosphatase 146 U/L (38-126); Aspartate Aminotransferase 44 IU/L (14-36); BUN Creatinine Ratio 27.6 (6-22); Bilirubin Total 0.4 mg/dL (0.2-1.3); Blood Urea Nitrogen 16 mg/dL (7-17); Calcium 9.2 mg/dL (8.4-10.2); Carbon Dioxide 23 mmol/L (22-32); Chloride 110 mmol/L (98-107); Estimated Glomerular Filt Rate > 60 mL/min (>60); Globulin 3.2 g/dL (1.7-4.1); Glucose 91 mg/dL (80-110); HEMOLYSIS < 15 (0-50); Sodium 141 mmol/L (137-145); Total Protein 7.6 g/dL (6.3-8.2)
[2021-08-02 20:54] LABS: Bacteria Urine Occasional (0-1); RBC Urine None Seen (0-5/HPF); Squamous Epithelial Cell Urine 1-5 /HPF (0-5/HPF); WBC Urine 5-10/HPF (0-5/HPF)
[2021-08-02 22:19] VITALS: BP 174/82; PULSE 64; RESP 18; O2SAT 100
[2021-08-03 00:17] LABS: NT-proBNP (BNP-Adult 18+) 71 pg/mL (<125)
== END 2021-08-02 22:20 | disposition home or self-care (01) ==
PROVIDERS: Emergency Provider Emergency Medicine; PCP Family Medicine
DX: R60.0 Localized edema (principal)
CPT/HCPCS: 36415; 74177; 80053; 81003; 81015; 83880; 85025; 87086; 93971; 99284; Q9967

== ENCOUNTER → 2021-09-07 14:22 | Outpatient (CLI) | payer MEDICARE, SELFPAY ==
[2020-07-29 09:47] VITALS: BMI 24.4
--- NOTE | 2021-09-07 14:24 | DI.RAD.S_ITS ---
PROCEDURE: XR KNEE LT 3V INDICATIONS: left knee pain and swelling TECHNIQUE: 3 views of the knee were acquired. COMPARISON: None. FINDINGS: Bones: No acute fractures or dislocations. No suspicious bony lesions. Mild tricompartmental degenerative changes of the left knee. Soft tissues: Moderate suprapatellar joint effusion. No suspicious soft tissue calcifications. IMPRESSION: Left knee without acute fracture or dislocation. Mild tricompartmental osteoarthrosis of the left knee with moderate sized joint effusion. Dictated by: Sandeep An M.D. on 09/07/2021 at 15:22 Approved by: Sandeep An M.D. on 09/07/2021 at 15:23
[2021-09-07 15:19] LABS: Erythrocyte Sedimentation Rate 11 MM/HR (0-20)
[2021-09-07 15:28] LABS: Uric Acid 5.7 mg/dL (2.5-6.2)
[2021-09-07 15:29] LABS: Rheumatoid Factor < 8.6 IU/mL (<12.0)
[2021-09-09 15:27] LABS: ANA Screen, IFA Negative (.)
== END ==
PROVIDERS: PCP Family Medicine; Referring Provider Family Medicine; Visit Provider Family Medicine
DX: M25.462 Effusion, left knee (principal); M25.562 Pain in left knee; M17.12 Unilateral primary osteoarthritis, left knee
CPT/HCPCS: 36415; 73562; 84550; 85651; 86038; 86140; 86430

== ENCOUNTER → 2021-12-02 08:08 | Outpatient (CLI) | payer MEDICARE, SELFPAY ==
[2020-07-29 09:47] VITALS: BMI 24.4
--- NOTE | 2021-12-02 08:09 | DI.MRI.S_ITS ---
PROCEDURE: MR KNEE LT WO CON INDICATIONS: Unspecified internal derangement of left knee TECHNIQUE: Noncontrast sagittal PD fast spin echo and T2 fast spin echo with fat saturation, sagittal 3-D FLASH with fat saturation; coronal T1 spin echo and PD fast spin echo with fat saturation, and axial PD fast spin echo with fat saturation through the knee. COMPARISON: [facility] [place], CR, XR KNEE 4+ VIEWS LEFT, 11/04/2021, 14:12. FINDINGS: Image quality: Excellent. Menisci: The lateral meniscus is intact, internal T2 signal possibly degenerative, without discrete tear. The popliteal meniscal fascicles are probably intact, although there is fluid in the region. Complex tear of the medial meniscal body and posterior horn with primary plane involving the periphery to the undersurface. A few fibers still attached to the root. There is extrusion. The injury involves the meniscal capsular junction. Cruciate ligaments: ACL and PCL are intact. Medial structures: MCL is intact. The semimembranosus tendon and pes anserine tendons are intact. Lateral structures: The iliotibial band, LCL, and biceps femoris tendon are intact. The popliteus extensor mechanism is intact. Anterior structures: Extensor mechanism is intact. The medial patellar retinaculum is intact. No high-grade edema in Hoffa's fat pad. Bones and cartilage: No suspicious marrow edema or acute fracture. Insertional enthesopathic changes of the PCL attachment on the tibial side. Focal full-thickness fissuring at the patellar median ridge cartilage. High-grade chondral loss of the medial compartment, but without marrow edema convincingly at this time. Less severe chondral heterogeneity in the lateral compartment. Joint space: Mild knee joint effusion and evidence of synovitis. Small Gusman's cyst. IMPRESSION: Moderate arthrosis, worst in the medial compartment where there is high-grade chondral loss without marrow edema at this time. There is focal full-thickness fissuring also at the patellar median ridge. Complex tear of the medial meniscal body and posterior horn with extrusion, also involving the meniscocapsular junction. Small knee joint effusion and synovitis. Small Gusman's cyst. Dictated by: Hebert Painter M.D. on 12/02/2021 at 11:10 Approved by: Hebert Painter M.D. on 12/02/2021 at 11:18
== END ==
PROVIDERS: PCP Family Medicine; Referring Provider Orthopaedic Surgery Foot and Ankle Surgery; Visit Provider Orthopaedic Surgery Foot and Ankle Surgery
DX: S83.242A Other tear of medial meniscus, current injury, left knee, initial encounter (principal); M23.92 Unspecified internal derangement of left knee; M17.12 Unilateral primary osteoarthritis, left knee; M25.462 Effusion, left knee; M65.862 Other synovitis and tenosynovitis, left lower leg; M71.22 Synovial cyst of popliteal space [Baker], left knee
CPT/HCPCS: 73721

== ENCOUNTER → 2021-12-27 08:55 | Outpatient (CLI) | payer MEDICARE, SELFPAY ==
[2020-07-29 09:47] VITALS: BMI 24.4
[2021-12-27 09:59] LABS: Add Manual Diff / Slide Review NO; Basophils Absolute Auto 100 /uL (0-100); Basophils Percent Auto 1.3 % (0-2); Eosinophils Absolute Auto 200 /uL (0-450); Eosinophils Percent Auto 2.1 % (2-4); Hematocrit 38.9 % (36-46); Hemoglobin 13.5 g/dL (12.0-16.0); Lymphocytes Absolute Auto 1600 /uL (1100-4500); Lymphocytes Percent Auto 21.9 % (25-40); Mean Corpuscular HGB Conc 34.6 % (30-36); Mean Corpuscular Hemoglobin 31.8 PG (26-34); Monocytes Absolute Auto 900 /uL (0-900); Monocytes Percent Auto 12.2 % (3-14); Neutrophils Absolute Auto 4500 /uL (1500-7000); Neutrophils Percent Auto 62.5 % (50-75); Platelet Count 410 X10^3/uL (150-400); Red Blood Cell Count 4.23 X10^6/uL (4.0-5.2); Red Cell Distribution Width 14.3 % (11.6-14.8); White Blood Cell Count 7.3 X10^3/uL (4.5-11.0)
[2021-12-27 10:10] LABS: BUN Creatinine Ratio 18.1 (6-22); Blood Urea Nitrogen 15 mg/dL (7-17); Calcium 9.3 mg/dL (8.4-10.2); Carbon Dioxide 26 mmol/L (22-32); Chloride 103 mmol/L (98-107); Estimated Glomerular Filt Rate > 60 mL/min (>60); Glucose 92 mg/dL (80-110); HEMOLYSIS < 15 (0-50); Potassium 4.2 mmol/L (3.4-5.1); Sodium 138 mmol/L (137-145)
[2021-12-27 10:11] LABS: Hemoglobin A1C% w Est Avg Glu 5.3 % (4.0-6.0)
== END ==
PROVIDERS: PCP Family Medicine; Referring Provider Orthopaedic Surgery Foot and Ankle Surgery; Visit Provider Orthopaedic Surgery Foot and Ankle Surgery
DX: Z01.818 Encounter for other preprocedural examination (principal); R73.9 Hyperglycemia, unspecified; Z01.812 Encounter for preprocedural laboratory examination
CPT/HCPCS: 36415; 80048; 83036; 85025; 93005; 93010

== ENCOUNTER → 2022-01-10 11:30 | Outpatient (CLI) | payer MEDICARE, SELFPAY ==
[2020-07-29 09:47] VITALS: BMI 24.4
[2022-01-10 12:38] LABS: COVID19 -Nasal RAPID Negative (Negative)
== END ==
PROVIDERS: PCP Family Medicine; Referring Provider Orthopaedic Surgery Foot and Ankle Surgery; Visit Provider Orthopaedic Surgery Foot and Ankle Surgery
DX: Z20.822 Contact with and (suspected) exposure to COVID-19 (principal)
CPT/HCPCS: 87635; C9803

== ENCOUNTER → 2022-02-01 11:41 | Outpatient (CLI) | payer MEDICARE, SELFPAY ==
[2020-07-29 09:47] VITALS: BMI 24.4
[2022-02-01 13:14] LABS: COVID19 -Nasal RAPID Negative (Negative)
== END ==
PROVIDERS: PCP Family Medicine; Referring Provider Orthopaedic Surgery Foot and Ankle Surgery; Visit Provider Orthopaedic Surgery Foot and Ankle Surgery
DX: Z20.822 Contact with and (suspected) exposure to COVID-19 (principal)
CPT/HCPCS: 87635; C9803

== ENCOUNTER 2022-02-03 06:00 | Day surgery (SDC) | payer MEDICARE, SELFPAY ==
[2020-07-29 09:47] VITALS: BMI 24.4
[2022-02-02 08:44] VITALS: BMI 25.6
[2022-02-03] VITALS (12 sets, daily range): BP systolic 108–148; BP diastolic 55–106; PULSE 54–96; RESP 12–24; TEMP 36.2–36.9; O2SAT 94–98; BMI 24.5; BMI 28.0
--- NOTE | 2022-02-03 06:57 | P.HP_ITS ---
History of Present Illness History of Present Illness Date Patient Seen: 02/03/22 Time Patient Seen: 06:58 Chief complaint: OPB Narrative: Patient is 56-year-old female with left knee pain. She endorses several years of worsening left knee pain and swelling. She has pain with swelling and walking. She is unable to go for her normal walks. She endorses anterior pain as well as medial pain. Her knee feels unstable. She had back surgery with [facility] about 6 months ago. She is able walk 1 block and hurts half-way through periods where swollen by the in. States he has to do fiber 6 or more. Also he has to hike and sources cannot do this anymore and has pain going up stairs. Endorses anterior medial and some lateral pain. She has failed conservative treatment. Received medical optimization came back as low risk. She lives independently in [facility]. He has failed conservative treatment with physical therapy, injections and bracing. She is indicated for left total knee arthroplasty. 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 Social History: household members none Prior Living Arrangements Apartment/Condo Safety & Behavioral: Feels Safe in Current Yes Environment Been Physically Hurt or No Threatened By a Person Suicidal Ideation Description None Suicide Plan Description No Plan Tobacco & Substance use: Smoking Status Never smoker alcohol intake current alcohol intake frequency holiday/special occasion Substance Use Type does not use Meds Home Medications and Allergies Home Medications Medication Instructions Recorded Confirmed Type ibuprofen 800 mg tablet See Rx Instructions .Route 11/16/21 02/03/22 Rx .COMPLEX #60 tabs Allergies Allergy/AdvReac Type Severity Reaction Status Date / Time morphine [MORPHINE] Allergy Severe SOB/ANAPHYL Verified 02/03/22 06:40 AXIS ketoconazole [KETOCONAZOLE] Allergy Intermediate pain, rash Verified 02/03/22 06:40 Review of Systems Review of Systems Narrative: No fevers chills nausea vomiting shortness of breath or history of blood clot. Endorses knee pain. Was 10 point review of systems negative ROS: Yes All systems reviewed with the patient and are negative except as otherwise documented Exam Narrative Exam Narrative: Alert oriented patient no acute distress. Heart regular rate rhythm. Lungs clear to auscultation bilaterally. Gait full weight-bearing no assistive devices. Musculoskeletal exam left lower extremity shows grossly normal alignment small effusion. Reduced range of motion 0-100 degrees. Tenderness a long medial compartment joint line. Crepitus flexion extension pain with compression of the patellofemoral joint. Stable knee to varus valgus stress testing. Stable Aby. Positive Jaren to pain along the medial joint line. Tenderness to palpation medial joint line and patella. Also some tenderness along palpation of the lateral joint line. There is good quad tone. Palpable pulses. Sensation grossly intact to light touch. Demonstrates 5/5 dorsiflexion, plantar flexion, knee extension knee flexion. Negative log roll. Neurologic examination sensation intact to light touch throughout the lower extremities. Coordination normal. Objective Imaging Left knee MRI: My impression: Left knee Merged with [facility] 12/02/2021 ligaments intact full-thickness cartilage loss patellofemoral joint high-grade cartilage loss and joint space narrowing medial compartment some cartilage/lateral compartment. No fractures. Mild effusion small Gusman cyst complex and medial meniscus body and posterior horn tear with extrusion Left knee x-rays weight-bearing: My impression: Medial compartment narrowing and subchondral sclerosis. No fractures. Normal alignment. Assessment & Plan Assessment and plan (1) Arthritis of knee, left: Status: Acute Plan Patient has significant pain associated with osteoarthritis of the left knee. It is associated with morning stiffness. Pain significantly interferes with normal daily function including ambulation, standing any activities that weight- bearing. After an active day basically interferes with sleep. There is significant crepitation on motion. There is marked joint line tenderness. X- rays show significant levels of osteoarthritis. There are no other contributing cause to the patient's pain. Multiple attempts at previous conservative treatment have rendered. The patient has failed an exercise program, anti- inflammatory medications and previous injections. Decision for left total knee arthroplasty. Medical optimization is low risk. Labs were reviewed. EKG was reviewed. The patient is use Hibiclens and the porous in. They have a walker. Otherwise independent healthy. Discussed outpatient discharge same day total knee arthroplasty versus outpatient with bed observation. We discussed the im portance of organizing postoperative care plan. Prescriptions were sent for home physical therapy. The medical record there is a note of a allergy to morphine but she tolerates Dilaudid fine. She will Ancef as a preoperative antibiotic. No personal or family history of blood clots or coagulopathy. We will do aspirin 81 mg twice a day for postoperative DVT prophylaxis. We discussed the importance of range of motion getting full extension back after surgery. We will also do a Toradol prescription for 5 days after surgery. She understands and agrees with the plan. The risks and benefits of the procedure have been discussed with the patient and given the opportunity to ask questions. The risks of surgery include but are not limited to infection, malunion, nonunion, persistence of pain, damage to nerves and blood vessels, posttraumatic arthritis, DVT, PE, cardiopulmonary complications and . The patient expressed a thorough understanding of the risks and benefits of surgery and has elected to proceed. Consent was signed in the office. COVID-19 COVID-19 status: Negative Time Spent With Patient Critical Care time: I spent a total of [] minutes of critical care time on this patient's care today; this time is exclusive of procedural time. Quality VTE Deep Vein Thrombosis/Pulmonary Embolism Present on Admission: No
[2022-02-03] MEDS: PREGABALIN 75 MG CAPSULE PO (07:06)
[2022-02-03] MEDS: LACTATED RINGERS 1,000 ML 42 ML IV ×2 (07:06→08:31)
[2022-02-03] MEDS: ACETAMINOPHEN 325 MG TABLET 975 MG PO (07:06)
[2022-02-03] MEDS: CELECOXIB 200 MG CAPSULE PO (07:06)
[2022-02-03] MEDS: CEFAZOLIN 2 GM/100 ML PREMIX 100 ML IV ×3 (07:55→23:13)
--- NOTE | 2022-02-03 08:00 | DI.RAD.S_ITS ---
PROCEDURE: XR KNEE LT 1TO2V INDICATIONS: postop total joint TECHNIQUE: 2 view(s) of the knee acquired. COMPARISON: [facility], CR, XR KNEE 4+ VIEWS LEFT, 11/04/2021, 14:12. [facility], CR, XR KNEE LT 3V, 09/07/2021, 14:15. FINDINGS: Bones: Patient is status post knee joint arthroplasty. Hardware components are in expected positions. Visualized bony structures are intact. Soft tissues: Overlying postoperative changes are noted. IMPRESSION: Expected appearance of the left knee arthroplasty. Dictated by: Gabriel Higgins M.D. on 02/03/2022 at 12:09 Approved by: Gabriel Higgins M.D. on 02/03/2022 at 12:09
--- NOTE | 2022-02-03 08:29 | SUR.OPER ---
Supine on padded OR bed, head on pillow, arms secured on padded arm boards at <90 degrees abduction, legs uncrossed, safety belt at abdomen, tape over blanket over lower right leg. 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
[2022-02-03] MEDS: TRANEXAMIC ACID 1,000 MG VIAL 1000 MG INJ ×2 (08:42→10:06)
[2022-02-03] MEDS: BUPIVACAINE LIPOSOME 266 MG/20 ML VIAL INJ (09:00)
[2022-02-03] MEDS: BUPIVACAINE 0.25% (PF) 60 ML, EPINEPHrine 0.3 MG INJ (09:48)
[2022-02-03] MEDS: KETOROLAC 30 MG/ML VIAL IV ×3 (10:30→23:10)
--- NOTE | 2022-02-03 10:43 | PM.OP.1 ---
Operative Date/Time/Diagnoses Date of procedure: 02/03/22 Time of procedure: 08:00 Pre-op diagnosis: Left knee arthritis M17.12 Post-op diagnosis: same Procedure & Clinicians Procedure: Total knee arthroplasty left CPT code 97041 Same procedure as scheduled: Yes Indications: The patient is a 66-year-old female with end-stage [id number] knee arthritis of the left. The patient has a significant varus knee arthritis. They have failed conservative treatment with activity modifications, injections, physical therapy and bracing. They has been indicated for total knee replacement. The risks and benefits of the procedure have been discussed with the patient even opportunity to ask questions. The risks of surgery include but are not limited to infection, malunion, nonunion, fracture, loosening, persistence of pain, damage to nerves and blood vessels, need for additional procedures, DVT, PE, cardiopulmonary complications and . The patient expressed a thorough understanding of the risks and benefits of surgery and has elected to proceed. Consent was signed in the office. During the operation the services of physician certified surgical tech/first assistant were medically indicated and necessary to provide the exposure of the operative site for the surgical procedure and to maintain the limb in a proper position to carry out the procedure safely and efficiently. Without a qualified assistant baseball coach being present this would extend the operative procedure and would have made the procedure more technically difficult to perform. The certified surgical tech/first assistant was medically necessary for the proper positioning, retraction and manipulation of the limb, proper exposure, and manipulation of the tissue for implantation implants and closure. Surgeon: Emily Harris Digital Circuit Designer: Shira Uribe Anesthesia Type: General and Peripheral nerve block Operative Notes Findings: End-stage arthritis full-thickness cartilage loss medial compartment and patellofemoral compartment. Degenerative tearing medial meniscus extrusion. Closure Type: primary Specimen(s): none sent Prosthetic devices, grafts, tissues, transplants, or devices: Lebron and nephew Shelby bcs 2 Femur size 4 Oxinium, left Tibia tray size 2 left nonporous base plate Patella round 32 mm x 7.5 thickness Yulietney B CS 11 mm left size 1 to poly insert Estimated Blood Loss (mL): 30 Blood products transfused: none Tourniquet time (min): 100 Procedure in detail: Patient was seen in the preoperative area where the patient and site of surgery were identified in the operative knee was marked informed consent confirmed. This was the left knee. Patient received the appropriate preoperative antibiotics this was 2 g of Ancef. And other preoperative medications and was taken to the operating room placed on operating table in the supine position. Spinal anesthetic were administered. The operative extremity was then prepped and draped in the standard sterile fashion with a nonsterile tourniquet high on the thigh. Patient was placed on the green foam bolsters. A lateral post was placed at the level of the proximal thigh /trochanter area as a lateral post. Formal time-out procedure was performed confirming the patient's side and site of surgery and administration of appropriate preoperative antibiotics and implants were in the room accounted for. All were in agreement. Patient received a preoperative dose of tranexamic acid and then a 2nd dose at tourniquet release Patient was prepped and draped in the standard sterile fashion and the foot was placed into the [facility] leg paul. This was taken into high flexion and the incision was marked out over the anterior knee to the level of the medial tubercle tubercle. The Esmarch was then used for exsanguination and the tourniquet was inflated to 250 mmHg. Was made through the skin and subcutaneous tissue in high flexion this was then brought down into 30? of flexion for the medial parapatellar arthrotomy. A marker pen was used to coleman the arthrotomy site for later repair. Joint fluid was evacuated. The anterior osteophytes and soft tissues were removed. Routine medial release was initially made along the medial proximal tibia with Bovie. The patella was 1st cut using the saw sized and prepped and then subluxed throughout the case and protected. The leg was then taken into extension and the patella was everted and the patella was cut to accommodate the patellar button. This was sized to a 32 mm button for a 7.5 mm thickness to recreate the original dimensions of the patella. Poly was removed and the protector replaced and the patella was subluxed and the knee was taken back up into flexion and attention was returned to the femur. Then the rotational landmarks of Whitesides line and the trans epicondylar axis were marked on the femur with electrocautery. Then the intramedullary guide for the femur was created. The distal femoral cut was made in 6? of valgus using the intramedullary guide with the cut setting on 0+ as the patient did not have a preoperative flexion contracture. The ACL and PCL released. The proximal tibia was then cut using the intramedullary guide, taking 9 mm off the less involved side this was the lateral plateau. The Ceasar wing was used to check the slope through the guide. Second pass was made through the tibial cut guide with the saw after the cut tibia was removed plane down about 1 more mm and further smooth then the resection surface. In extension remainders of the medial and lateral menisci were removed. The extension flexion gaps were then checked using both the flexion extension blocks. And was selected for a 11 mm poly. the femur was then sized and the rotation set using the posterior condyle referencing 3? of external rotation. This measured a size 4. Cut block was then placed and the anterior, posterior and chamfer cuts were then made. The posterior osteophytes and soft tissues were then removed. Then in extension the posterior capsule was injected with a mixture of 40 mL of 0.25% Marcaine and 20 mL of Exparel care to avoid excessive injection posterior laterally. The remainder of this was saved for the capsule and subcutaneous tissue and placed during cement curing. Attention was then returned to the tibia and this was prepared with the rotation set by the extramedullary guide. Lined up with the tibial crest and the 2nd toe. Size 2 tibial tray was selected. The tibial trial was then pinned in place and the trial femoral components were placed. Then the intercondylar notch was cut through the femoral trial to create the box this was done with the distal than the proximal drill and then the box cut distally and then proximally. Next the insert was placed and the trial poly placed. This was stable in flexion and extension and there was a 0-135 degree range of motion. The tibia was then finished with the drill and flange cuts and then this was removed. All trials were removed. The wound and bone was irrigated with pulsatile lavage. This was then dried with a sponge. The components were verified and opened and the cement was mixed. Cement was applied to the components and then to the bone then the tibia was cemented in place 1st followed by the femur then the patella. Excess cement was removed. With care looking around the back of the knee. Remainder of the injection was injected around the capsule. trial poly was placed back in the leg was placed into extension for the patellar cementing. After this was cured approximately 15 minutes later and the dilute Betadine solution was placed for at least 3 minutes in the wound this was then irrigated out and the final poly was placed. This was a 11 mm poly. The tourniquet was released hemostasis was achieved. Final 1 g of tranexamic acid was given IV at the time of tourniquet release. The capsule was closed with 1. Ethibond suture. Subcutaneous layer was closed with 3-0 Vicryl suture. Skin was closed with a running V lock suture Stratafix Monocryl type suture and Dermabond. An elis dressing was placed given this patient's requirements of strong anticoagulation. An Keyur wrap was applied. Anesthetic was terminated the patient was woken from anesthesia and taken to recovery room in good condition. There no immediate complications from this procedure. The patient will be maintained on a standard total knee replacement protocol with weight-bearing as tolerated. Complications: none Post-operative Condition: stable Disposition: PACU Plan for aftercare: Standard postoperative plan weightbear as tolerated. Emphasis on range of motion. Will start aspirin 81 mg b.i.d. for postoperative DVT prophylaxis. Follow-up in 2 weeks for wound check. Will start outpatient physical therapy.
[2022-02-03] MEDS: fentaNYL 100 MCG/2 ML INJ 50 MCG IV (11:00)
[2022-02-03] MEDS: ONDANSETRON 4 MG/2 ML INJ IV ×2 (11:09→16:10)
[2022-02-03] MEDS: LACTATED RINGERS 1,000 ML 100 ML IV ×2 (12:00→23:20)
[2022-02-03] MEDS: HYDROMORPHONE 2 MG TABLET PO ×4 (12:35→20:14)
[2022-02-03] MEDS: ACETAMINOPHEN 325 MG TABLET 650 MG PO ×3 (13:00→23:13)
--- NOTE | 2022-02-03 15:00 | PT.IIE ---
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) Status post breast lumpectomy Status post hysterectomy Medical History (Last Reviewed 02/03/22 @ 06:59 by Emily Harris MD) Back pain of lumbar region with sciatica Breast cancer Carpal tunnel syndrome (~2007) Chronic back pain (~2006) Fusion of lumbar spine (2020) Headache (~1976) Hearing deficit Lumbar strain Migraines (~1976) Osteoarthritis of spine with radiculopathy, lumbar region Psoriasis Splenic mass Vaginal atrophy Vaginal pain Vision disorder Yeast infection Physical Therapy Inpatient Evaluation/Re-Eval M1 PT/OT-IP Prior Functional Status Start: 02/03/22 16:52 Freq: NEEDED Status: Active Protocol: Document 02/03/22 15:00 AB (Rec: 02/03/22 17:04 AB [email or web address]) Medical Review Prior Functional Status Medical History Reviewed Yes Communication able to make needs known Mobility and Gait pt stated that she is independent with all mobilities and ambulation without AD Social History Household Members none Living Arrangements Apartment/Condo Comment pt plans to go to her friends house for ~ 2 weeks and her friend Pelon will assist her Number of Floors (Floors) One Floor Number of Stairs To Enter/Railing? 3 steps R rail ascending Home Environment High Toilet,Walk in Shower Home Equipment Four Wheel Walker,Shower Seat without Backrest M2 PT-IP Current Condition Start: 02/03/22 16:52 Freq: NEEDED Status: Active Protocol: Document 02/03/22 15:00 AB (Rec: 02/03/22 17:04 AB [id number]) Physical Therapy Current Condition Current Condition Evaluation Date 02/03/22 Treatment Diagnosis s/p L TKA; difficulty in walking Onset Date 02/03/22 M3 PT-IP Subjective Start: 02/03/22 16:52 Freq: NEEDED Status: Active Protocol: Document 02/03/22 15:00 AB (Rec: 02/03/22 17:04 AB [email or web address]) Subjective Physical Therapy Visit Type Type Initial Evaluation Visit Start Time 15:00 Visit Stop Time 16:50 Total Visit Minutes 50 Notes split visits: 1500 to 1515 and 1615 to 1650 Number of SEEDLING PULLER Visits 0 Physical Therapy Visit Comments Patient Comments c/o increase pain Therapy Pain Assessment Pain When Pain Assessed At Rest Pain Present Pain Present Pain Reported Location left knee Intensity 9 Scale Used Numeric (0 - 10) M4 PT-IP Mobility and Gait Start: 02/03/22 16:52 Freq: NEEDED Status: Active Protocol: Document 02/03/22 15:00 AB (Rec: 02/03/22 17:04 AB [id number]) PT-Bed Mobility Assessment Supine to Sit Supine to Sit Standby Assistance Sit to Supine Sit to Supine Standby Assistance PT-Transfer Assessment Sit to and From Stand Sit to and from Stand Minimal Assistance,1 Person Assistance,Use of Upper Extremities Equipment Transfer Assistive Device Gait Belt,Front Wheeled Walker Orthotic/Prosthetic Devices or Brace: No Comments Mobility Comments BP in supine: 149/86. heel slides completed prior to mobility. completed supine to sit SBA and max cues for techniques. able to sit on EOB SBA. completed sit to stand min A and cues. pt initially not weight bearing on LLE and educated on benefits of wt bearing. pt ambulated in room using FWW min A and cues ~ 40 ft. presents with slow pace, decrease LE elevation and pt requiring increase time to follow directions. pt requested to go back to bed. completed sit to supine SBA and cues. positioned pt in bed. call light and table placed within reach. pt only has a 4WW and informed regarding need for FWW at this time. pt planning of purchasing one from [employer]. Gait Assessment Gait Gait Assistance Required: Minimum Assistance Distance (Feet) 40 Able to Maintain Weight Bearing Status Yes During Gait Assistive Devices Assistive Device Gait Belt,Front Wheeled Walker Orthotic/Prosthetic Devices or Brace: No Gait Deviations General Gait Pattern Decreased Stride Length, Decreased Feet Clearance,Step- to Gait Factors Limiting Gait Function Factors Limiting Gait Function Decreased Activity Tolerance, Decreased Strength,Limited Range of Motion,Pain,Poor Balance,Poor Safety Awareness PT-Balance Assessment Sitting Balance and Reactions Static Sitting Balance Ability Good Dynamic Sitting Balance Ability Good Standing Balance and Reactions Static Standing Balance Ability Fair Dynamic Standing Balance Ability Fair Device Used FWW M5 PT-IP Objective Assessments Start: 02/03/22 16:52 Freq: NEEDED Status: Active Protocol: Document 02/03/22 15:00 AB (Rec: 02/03/22 17:04 [email or web address]) Orientation Orientation/Cognition Level of Alertness Alert Orientation Name,Place,Situation Language Function Ability No Deficits Noted Safety Awareness Decreased Safety Awareness Memory Description Short Term Impaired Gross Range of Motion Lower Extremity ROM Impairments L knee flexion: ~ 40 deg Strength Lower Extremity Strength Assessment Left Impaired Hip 4-/5 Knee 3+/5 Comments Strength Comments pt c/o increase L knee pain with increase ms guarding affecting MMT Sensation Assessment Sensation Gross Sensation WNL Muscle Tone Muscle Tone WNL Yes M6 PT-IP Treatment Start: 02/03/22 16:52 Freq: NEEDED Status: Active Protocol: Document 02/03/22 15:00 AB (Rec: 02/03/22 17:04 [email or web address]) Physical Therapy Treatment Exercises Exercises Heel Slides Education Education Provided Precautions,Weight Bearing Status,Post-Op Packet,Safety M7 PT-IP Assessment and Plan Start: 02/03/22 16:52 Freq: NEEDED Status: Active Protocol: Document 02/03/22 15:00 AB (Rec: 02/03/22 17:04 [email or web address]) PT Summary Assessment and Plan Potential Rehabilitation Potential Good Status of Condition at Evaluation Evolving Summary Impairments Pain,ROM,Strength,Balance, Coordination,Sensation,Tone, Cognition,Bed Mobility, Transfers,Gait,Activity Tolerance Assessment Summary pt s/p L TKA and just had surgery this morning. c/o 9/ 10 pain on L knee affecting assitance level and tolerance. Caregiver training set up tomorrow at 9 am and pt also needs to complete stair climbing training prior to d/c . will continue to assess progress. Goals Bed Mobility Goal Independent Transfer Goal Independent,Front Wheeled Walker Gait Goal Independent,Front Wheel Walker Gait Distance 150 Other Goals improve ambulation using 4WW SBA 200 ft up/down 3 steps R rail ascending SBA Days to Meet Goals 5 Frequency of Treatment Frequency Of Treatment Twice a Day Treatment Plan Physical Therapy Treatment Plan Bed Mobility Training,Transfer Training,Gait Training, Therapeutic Exercise,Balance Retraining,Post Op Education, Discharge Planning,Hot or Cold Pack,Neuromuscular Re-ed, Coordination Retraining,Manual Therapy Weight Bearing Status Weight Bearing Status Weight Bear as Tolerated Allowed Weight Bearing Amount (enter % LLE WBAT or #) (%) Recommendations To Nursing Amount of Assist Needed 1 Person Assist Discharge Recommendations PT Discharge Recommendations Home with Assistance, Outpatient PT Equipment Needed for Home Before FWW Discharge Transportation Needs at Discharge Private Vehicle
[2022-02-03] MEDS: DOCUSATE 100 MG CAPSULE PO (20:14)
[2022-02-03] MEDS: ASPIRIN EC 81 MG TABLET PO (20:14)
[2022-02-04 02:00] VITALS: BP 100/66; PULSE 60; RESP 16; TEMP 36.3; O2SAT 96
[2022-02-04] MEDS: KETOROLAC 30 MG/ML VIAL IV ×2 (04:50→10:05)
[2022-02-04] MEDS: HYDROMORPHONE 2 MG TABLET PO (04:51)
[2022-02-04] MEDS: ACETAMINOPHEN 325 MG TABLET 650 MG PO (05:29)
[2022-02-04 06:35] VITALS: BP 118/68; PULSE 62; RESP 18; TEMP 36.3; O2SAT 96
--- NOTE | 2022-02-04 08:12 | PM.DS.1 ---
History of Present Illness History of Present Illness Date Patient Seen: 02/04/22 Time Patient Seen: 08:12 Chief complaint: OPB Narrative: Operative Date/Time/Diagnoses Date of procedure: 02/03/22 Time of procedure: 08:00 Pre-op diagnosis: Left knee arthritis M17.12 Post-op diagnosis: same Procedure & Clinicians Procedure: Total knee arthroplasty left CPT code 10800 Same procedure as scheduled: Yes Indications: The patient is a 66-year-old female with end-stage [id number] knee arthritis of the left.? The patient has a significant varus knee arthritis. They have failed conservative treatment with activity modifications, injections, physical therapy and bracing.? They has been indicated for total knee replacement.? The risks and benefits of the procedure have been discussed with the patient even opportunity to ask questions.? The risks of surgery include but are not limited to infection, malunion, nonunion, fracture, loosening, persistence of pain, damage to nerves and blood vessels, need for additional procedures, DVT, PE, cardiopulmonary complications and .? The patient expressed a thorough understanding of the risks and benefits of surgery and has elected to proceed.? Consent was signed in the office. During the operation the services of physician surgical specialist were medically indicated and necessary to provide the exposure of the operative site for the surgical procedure and to maintain the limb in a proper position to carry out the procedure safely and efficiently.? Without a qualified construction administrative assistant being present this would extend the operative procedure and would have made the procedure more technically difficult to perform.? The surgical specialist was medically necessary for the proper positioning, retraction and manipulation of the limb, proper exposure, and manipulation of the tissue for implantation implants and closure. Surgeon: Emily Harris Button Inspector: Shira Uribe Anesthesia Type: General and Peripheral nerve block Operative Notes Findings: End-stage arthritis full-thickness cartilage loss medial compartment and patellofemoral compartment.? Degenerative tearing medial meniscus extrusion. Closure Type: primary Specimen(s): none sent Prosthetic devices, grafts, tissues, transplants, or devices: Lebron and nephew Journey bcs 2 Femur size 4 Oxinium, left Tibia tray size 2 left nonporous base plate Patella round 32 mm x 7.5 thickness Shelby B CS 11 mm left size 1 to poly insert Estimated Blood Loss (mL): 30 Blood products transfused: none Tourniquet time (min): 100 Discharge Providers Provider Discharge Date: 02/04/22 Primary care physician: García Bolton MD Consults: 02/03/22 06:00 Consult to Anesthesiology Routine Comment: Consulting Provider: Anesthesiologist Reason for consultation: Regional block for post operative pain control Has provider been notified: No 02/03/22 10:36 Consult to Physical Therapy Evaluate & Treat Comment: plan likely DC home today if does well with PT Physician Instructions: postop TKA protocol Discharge provider: Bonnie Alves PA-C Summary Hospital Course Discharge Diagnosis: Left knee osteoarthritis, s/p left total knee arthroplasty Hospital Course: Ms Friend's hospital course was unremarkable. On POD# 1 she was feeling well and wanted to go home. She was ambulating and voiding without difficulty. Her pain was well-controlled w/ oral medication. She was evaluated by PT prior to discharge and they felt she was safe to go home. Exam Vital Signs (past 8 hours): - 02/04/22 02:00 02/04/22 06:35 Temperature 97.4 F L 97.4 F L Pulse Rate 60 62 Respiratory Rate 16 18 Blood Pressure 100/66 118/68 Pulse Oximetry 96 96 Oxygen Flow Rate 0 0 Fraction of Inspired Oxygen 98 Oxygen Delivery Method Room Air Oxygen Flow Rate 0 Narrative Exam Narrative: 5/5 strength in hip flexors, quadriceps, hamstrings, DF, PF, EHL on left. Sensation to light touch intact throughout LLE. Calves soft, compressible, nontender and without palpable cords or masses. KEYUR wrap and Aquacel dressing CDI. 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 Social History marital status: unknown household members: none occupational status: previously employed Smoking Status: Never smoker alcohol intake: current substance use type: does not use Discharge Assessment & Plan Assessment and Plan Assessment: Left knee osteoarthritis, s/p left total knee arthroplasty Plan of Treatment: Discharge home, ASA 81 mg BID for VTE prophylaxis, multimodal pain control, outpt PT, f/u in 2 weeks. Discharge Plan Discharge Plan Patient Disposition: Home Discharge orders & Medications Discharge Orders: Discharge (Order); Ordered 02/03/22 Ordered By: Emily Harris Prescriptions: New ketorolac 10 mg tablet 10 mg PO QID 5 Days Qty: 20 0RF Rx Instructions: do not take with ibuprofen, may resume ibuprofen AFTER ketorolac/toradol prescription finished hydromorphone 2 mg tablet 2 mg PO Q4H PRN (Reason: pain) Qty: 40 0RF Rx Instructions: acute postop ondansetron 4 mg tablet,disintegrating 4 mg PO Q8H PRN (Reason: nausea and vomiting) Qty: 7 1RF docusate sodium [Colace] 100 mg capsule 100 mg PO BID Qty: 60 0RF aspirin 81 mg tablet,delayed release (DR/EC) 81 mg PO BID Qty: 60 0RF Discontinued ibuprofen 800 mg tablet See Rx Instructions .ROUTE .COMPLEX Qty: 60 0RF Dose Instruction: TAKE 1 TABLET BY MOUTH EVERY 8 HOURS Rx Instructions: TAKE 1 TABLET BY MOUTH EVERY 8 HOURS Follow up/Referrals: Emily Harris MD [Physician] - (Your follow-up appointment is on 02/16 2022 at 3:[address] Harris at [facility] location [facility]) García Bolton MD [Primary Care Provider] - Diet/Activity/Treatments Diet: Diet as Tolerated Activity: Weightbear as tolerated . Work on knee range of motion making sure to maintain full extension and then work on flexion. Other treatments: Dressing/Wound care: -Remove the Keyur wrap 48 hours after surgery. -Keep Aquacell dressing in place until postoperative follow-up office visit. -you may see some drainage on the bandage, this is ok. If it is leaking or saturated, then the dressing can be changed to clean gauze or a clean surgical dressing from a pharmacy or reinforced with additional gauze and paper tape or dressings over the top. Otherwise, just keep dressing in place until follow up. -Okay to shower. Keep wound out of direct water stream. No soaking or submerging until all the scabs fall off (approximately 6 weeks). -Please call the office if dressing becomes significantly wet, soiled, or saturated. Activities: -Weight-bearing as tolerated. Use front wheeled walker, and progress to cane when safe. -Continue with home exercises as directed by your physical therapist. -Elevate ?toes above the nose if you have significant swelling in your lower leg. (A wedge pillow is easiest.) -Ice your incision as needed for pain/inflammation/swelling. Protect your skin with a folded pillowcase. Follow-up: -Follow-up with your surgeon or PA in the office in 10-14 days after surgery. -Follow-up with your surgeon 6 weeks postoperatively. Call the office if you have chest pain, shortness of breath, significant swelling that will not resolve with elevating, fever over 101?, significantly worsening pain. [facility]: [phone] You have been discharged with medications. These have already been sent to your pharmacy. Pain include pain medications: Hydromorphone (Dilaudid) 2 mg orally every 4 hours as needed for pain. If your pain is more severe you may take up to 2 pills (4 mg) every 4 hours for pain. Take the smallest dose necessary. Narcotic medication can make you feel constipated. You can get [id number] stool softener such as docusate sodium-Colace at a pharmacy to help with this. And acetaminophen (Tylenol) take 500-1000 mg 3 times a day for pain control. You also have a prescription for Zofran (ondansetron) this is a strong anti nausea medication that can be taken up to every 8 hours as needed for nausea Additionally will take a baby aspirin 81 mg twice a day (morning and night) to help prevent blood clots If you have been discharged with ketorolac (toradol) this is a strong anti-inflammatory, do not take ibuprofen/meloxicam/mortin or other NSAIDS while on ketorolac. Once your ketorolac prescription is finished, you may restart taking other NSAIDs again (example ibuprofen 800 mg 3 times a day for 10 days). narcotic pain medication, tylenol and aspirin are fine to continue while on ketorolac. Skin/Wound/Dressing Care Report to your healthcare provider any signs of infection, such as:: chills, fever, night sweats, increased pain, unusual drainage and unusual redness Visit Report/Discharge Packet Instructions: DI for Knee Replacement Stand Alone Forms: Surgery Discharge Discharge Data Primary Care Provider: García Bolton Attending Provider: Emily Harris VTE Deep Vein Thrombosis/Pulmonary Embolism Present on Admission: No
[2022-02-04] MEDS: HYDROMORPHONE 4 MG TABLET PO (08:27)
[2022-02-04] MEDS: DOCUSATE 100 MG CAPSULE PO (08:28)
[2022-02-04] MEDS: ASPIRIN EC 81 MG TABLET PO (08:28)
--- NOTE | 2022-02-04 09:35 | PT.IPTN ---
Current Diagnoses Unilateral primary osteoarthritis, left knee (02/03/22) Surgery Performed Operation Date: 02/03/22 07:45 Actual Procedures p Total Knee Arthroplasty(Left) - Emily Harris MD Physical Therapy Treatment Note M2 PT-IP Current Condition Start: 02/03/22 16:52 Freq: NEEDED Status: Discharge Protocol: Document 02/03/22 15:00 AB (Rec: 02/03/22 17:04 AB [id number]) Physical Therapy Current Condition Current Condition Evaluation Date 02/03/22 Treatment Diagnosis s/p L TKA; difficulty in walking Onset Date 02/03/22 M3 PT-IP Subjective Start: 02/03/22 16:52 Freq: NEEDED Status: Discharge Protocol: Document 02/04/22 09:10 KS (Rec: 02/04/22 12:39 KS [email or web address]) Subjective Physical Therapy Visit Type Type Treatment Note Visit Start Time 09:10 Visit Stop Time 09:35 Total Visit Minutes 25 Notes Partner present for caregiver training Number of CLAIM TECHNICIAN Visits 1 Physical Therapy Visit Comments Patient Comments c/o increase pain M4 PT-IP Mobility and Gait Start: 02/03/22 16:52 Freq: NEEDED Status: Discharge Protocol: Document 02/04/22 09:10 KS (Rec: 02/04/22 12:39 KS [id number]) PT-Bed Mobility Assessment Supine to Sit Supine to Sit Standby Assistance Sit to Supine Sit to Supine Standby Assistance Scooting Scooting to Edge of Bed Standby Assistance PT-Transfer Assessment Sit to and From Stand Sit to and from Stand Contact Guard Assistance,1 Person Assistance,Use of Upper Extremities Equipment Transfer Assistive Device Gait Belt,Front Wheeled Walker Orthotic/Prosthetic Devices or Brace: No Transfers Transfer Destination Bed,Wheelchair Transfer Technique Pt ambulated w/ FWW Transfer Ability Level of Assist Standby Assistance,Contact Guard Assistance,1 Person Assistance,Use of Upper Extremities Comments Mobility Comments Pt in bed upon arrival w/ partner/caregiver in room. Pt SBA for bed mobility. Demonstrated gait belt application and proper assistance technique to caregiver who was able to provide gait belt and CGA for sit<>stand w/ FWW. Pt ambulated ~20 ft to w/c in hallway, w/c transport to stairs for energy conservation . Pts caregiver provided CGA for pt ascend steps and Min A w/ HOGSHEAD STRIPPER for pt descending stairs. She then ambulated ~80 ft in direction of room w/ FWW CGA. Transferred back to bed CGA. Reviewed ther ex, at home safety. Pt and caregiver feel safe to return home w/ HHPT. Gait Assessment Gait Gait Assistance Required: Contact Guard Assist,1 Person Assist Distance (Feet) 80 Able to Maintain Weight Bearing Status Yes During Gait Assistive Devices Assistive Device Gait Belt,Front Wheeled Walker Orthotic/Prosthetic Devices or Brace: No Gait Deviations General Gait Pattern Decreased Stride Length, Decreased Feet Clearance,Step- to Gait Factors Limiting Gait Function Factors Limiting Gait Function Decreased Activity Tolerance, Decreased Strength,Limited Range of Motion,Pain,Poor Balance,Poor Safety Awareness Comments Gait Comments Decreased stride and foot clearance, increased WB through BUE. Stair Climbing Assessment Evaluation Level of Assist On Stairs Contact Guard Assistance, Minimal Assistance,1 Person Assistance Devices Stair Climbing Assistive Devices Right Railing Technique/Endurance Stair Climbing Direction Ascend and Descend Stair Climbing Technique Step to Step Number of Steps Climbed 3 Stair Climbing Set # Repetitions (reps) 1 Comments Stair Climbing Comments Pt ascended/descended 3 steps w/ R rail step to pattern and cues for sequencing CGA ascent and Min A w/ HOGSHEAD STRIPPER rpvided by caregiver during descent. Pt and caregiver feel safe to perform 3 steps leading into home upon d/c. PT-Balance Assessment Sitting Balance and Reactions Static Sitting Balance Ability Good Dynamic Sitting Balance Ability Good Standing Balance and Reactions Static Standing Balance Ability Fair Dynamic Standing Balance Ability Fair Device Used FWW M5 PT-IP Objective Assessments Start: 02/03/22 16:52 Freq: NEEDED Status: Discharge Protocol: Document 02/03/22 15:00 AB (Rec: 02/03/22 17:04 AB [id number]) Orientation Orientation/Cognition Level of Alertness Alert Orientation Name,Place,Situation Language Function Ability No Deficits Noted Safety Awareness Decreased Safety Awareness Memory Description Short Term Impaired Gross Range of Motion Lower Extremity ROM Impairments L knee flexion: ~ 40 deg Strength Lower Extremity Strength Assessment Left Impaired Hip 4-/5 Knee 3+/5 Comments Strength Comments pt c/o increase L knee pain with increase ms guarding affecting MMT Sensation Assessment Sensation Gross Sensation WNL Muscle Tone Muscle Tone WNL Yes M6 PT-IP Treatment Start: 02/03/22 16:52 Freq: NEEDED Status: Discharge Protocol: Document 02/04/22 09:10 KS (Rec: 02/04/22 12:39 LA [id number]) Physical Therapy Treatment Exercises Exercises Ankle Pumps,Gluteal Sets,Quad Sets,Heel Slides,Straight Leg Raises Education Education Provided Precautions,Weight Bearing Status,Post-Op Packet,Safety M7 PT-IP Assessment and Plan Start: 02/03/22 16:52 Freq: NEEDED Status: Discharge Protocol: Document 02/04/22 09:10 KS (Rec: 02/04/22 12:39 LA [id number]) PT Summary Assessment and Plan Potential Rehabilitation Potential Good Summary Impairments Pain,ROM,Strength,Balance, Coordination,Sensation,Tone, Cognition,Bed Mobility, Transfers,Gait,Activity Tolerance Progress Towards Goals Progressing Toward Goals Assessment Summary Pt still limited by high level of pain, however did show improvement w/ mobility, activity tolerance, ambulation and stair training. Pts caregiver/partner was able to safely provide all necessary cues and assistance throughout treatment. Both feel comfortable in going home. She will benefit from HHPT or OPPT to improve strength, ROM, and stability. Goals Bed Mobility Goal Independent Transfer Goal Independent,Front Wheeled Walker Gait Goal Independent,Front Wheel Walker Gait Distance 150 Other Goals improve ambulation using 4WW SBA 200 ft up/down 3 steps R rail ascending SBA Days to Meet Goals 5 Frequency of Treatment Frequency Of Treatment Twice a Day Treatment Plan Physical Therapy Treatment Plan Bed Mobility Training,Transfer Training,Gait Training, Therapeutic Exercise,Balance Retraining,Post Op Education, Discharge Planning,Hot or Cold Pack,Neuromuscular Re-ed, Coordination Retraining,Manual Therapy Weight Bearing Status Weight Bearing Status Weight Bear as Tolerated Allowed Weight Bearing Amount (enter % LLE WBAT or #) (%) Recommendations To Nursing Amount of Assist Needed 1 Person Assist Discharge Recommendations PT Discharge Recommendations Home with Assistance, Outpatient PT Equipment Needed for Home Before FWW Discharge
--- NOTE | 2022-02-04 10:46 | PC.NURSE ---
Pt is A&Ox3, VSS, afebrile on RA. She complains of pain to L knee 9/10 this a.m. well controlled with prn dilaudid and toradol reducing pain to 4/10. She denies n/v and is able to participate with PT. Ortho and PT clear patient for discharge home this a.m. with her spouse. She verbalizes understanding of discharge activity, medications, site care, s/sx of infection/complications as well as follow up appointments. She is escorted via w/ch by RN to private vehicle with her boyfriend and all of her belongings including FW rolling walker for discharge home.
--- NOTE | 2022-02-04 10:54 | CM.DPNOTE ---
DCP Note: Patient here for LTKA yesterday and discharged home this morning before this dcp had a chance to assess. Corie Pathak RN/DCP
== END 2022-02-04 10:40 | disposition home or self-care (01) ==
LOC: OR 07:23 → AC 08:45
PROVIDERS: PCP Family Medicine; Referring Provider Orthopaedic Surgery Foot and Ankle Surgery; Visit Provider Orthopaedic Surgery Foot and Ankle Surgery
PROC: 0SRD0JZ Replacement of Left Knee Joint with Synthetic Substitute, Open Approach (ICD-10-PCS; CPT 27447; principal; 2022-02-03 07:45)
DX: M17.12 Unilateral primary osteoarthritis, left knee (principal); M94.262 Chondromalacia, left knee; M23.92 Unspecified internal derangement of left knee
CPT/HCPCS: 27447; 73560; 94762; 97116; 97162; 97530; C1776; C1713; C9290; J0171; J0690; J1100; J1170; J1885; J2250; J2405; J2704; J3010

== ENCOUNTER 2022-02-09 20:25 | Emergency (ER) | payer MEDICARE, SELFPAY ==
[2022-02-03 11:58] VITALS: BMI 28.0
[2022-02-09 20:32] VITALS: BP 169/82; PULSE 100; RESP 24; TEMP 36.8; O2SAT 99; BMI 28.3
--- NOTE | 2022-02-09 20:41 | DI.US.S_ITS ---
PROCEDURE: [facility] VENOUS LOW EXTREM LT INDICATIONS: post op pain and swelling TECHNIQUE: Real-time imaging, as well as color and pulse Doppler interrogation, were performed of the lower extremity deep veins from the inguinal ligament to the popliteal fossa. COMPARISON: [facility], [facility] VENOUS LOW EXTREM LT, 08/02/2021, 18:23. FINDINGS: The common femoral, femoral and popliteal veins are normally compressible, and free of intraluminal thrombus. Color and pulse Doppler demonstrate normal phasic intraluminal flow. There is normal augmentation response to distal compression maneuver. IMPRESSION: 1. No evidence of deep venous thrombosis in the left lower extremity. Dictated by: Victoriano Hill M.D. on 02/09/2022 at 22:21 Approved by: Victoriano Hill M.D. on 02/09/2022 at 22:24
--- NOTE | 2022-02-09 20:49 | PC.NURSE ---
Left leg CMS intact. Reports pain meds cause nausea so she hasn't been taking them consistently. Has been feeling anxiety with situation and had chest pain once when she was feeling that way. Currently denies chest pain, shortness of breath.
[2022-02-09 23:29] LABS: Bacteria Urine Occasional (0-1); Culture Indicated Urine Cult Not Indicated; RBC Urine 0-1/HPF (0-5/HPF); Squamous Epithelial Cell Urine 0-1 /HPF (0-5/HPF); WBC Urine None Seen (0-5/HPF)
--- NOTE | 2022-02-09 23:31 | ED.EXTPRO ---
HPI - Extremity Problem General Chief complaint: Extremity Problem,Nontraumatic Stated complaint: Surgery on left knee t-7, Severe pain Time Seen by Provider: 02/09/22 22:56 Source: patient Mode of arrival: Wheelchair History of Present Illness HPI Narrative: Patient is a 66-year-old female presenting today with left leg pain and swelling. She is status total knee arthroplasty on 02/03/2022. She has been home she has been taking her pain medications and doing physical therapy. She has noticed a lot of swelling. She says overall she does not feel very good. She does not seem to be tolerating her pain medications her pain is frequently out of control. She is taking hydromorphone at home but it seems to make her very nauseous. She has not had fever chills. She does have frequent urination. She has no chest pain shortness of breath. Related Data Previous Rx's Medication Instructions Recorded aspirin 81 mg tablet,delayed 81 mg PO BID #60 tabs 02/03/22 release docusate sodium 100 mg capsule 100 mg PO BID stool softener #60 02/03/22 (Colace) caps hydromorphone 2 mg tablet 2 mg PO Q4H PRN pain #40 tabs 02/03/22 ondansetron 4 mg disintegrating 4 mg PO Q8H PRN nausea and 02/03/22 tablet vomiting #7 tabs ondansetron 4 mg disintegrating 4 mg PO Q8H PRN nausea and 02/09/22 tablet vomiting #10 tabs Allergies Allergy/AdvReac Type Severity Reaction Status Date / Time morphine [MORPHINE] Allergy Severe SOB/ANAPHYL Verified 02/03/22 06:40 AXIS ketoconazole [KETOCONAZOLE] Allergy Intermediate pain, rash Verified 02/03/22 06:40 Review of Systems Review of Systems Narrative: GENERAL: Denies chills, fatigue, malaise, fever, sweats, travel HEENT: Denies sinus pain, ear pain, sore throat, difficulty swallowing, neck pain RESPIRATORY: Denies dyspnea, cough, wheezing, hemoptysis, sputum. CARDIOVASCULAR: Denies chest pain, palpitations, orthopnea, edema GASTROINTESTINAL: Denies nausea, vomiting, abdominal pain, diarrhea, constipation, melena. : Denies dysuria, frequency, incontinence, hematuria, urinary retention, flank pain. MUSCULOSKELETAL: See HPI SKIN: No rash, no erythema, no pruritus NEUROLOGIC: Denies weakness, dizziness, headache, numbness, change in speech, confusion PSYCHIATRIC: No concerning psychosocial issues. 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 Social History marital status: unknown household members: none occupational status: previously employed Smoking Status: Never smoker alcohol intake: current substance use type: does not use Smoking Status: Never smoker alcohol intake frequency: holidays/special occasions only Substance Use Type: does not use Exam Initial Vital Signs Initial Vital Signs: Vital Signs Temperature 98.3 F 02/09/22 20:32 Pulse Rate 100 H 02/09/22 20:32 Respiratory Rate 24 02/09/22 20:32 Blood Pressure 169/82 H 02/09/22 20:32 Pulse Oximetry 99 02/09/22 20:32 Oxygen Delivery Method 02/09/22 20:32 GENERAL: Alert well-appearing 66-year-old female and in no acute distress. HEENT: Head atraumatic,EOMI, pupils reactiv CARDIOVASCULAR: Regular rate and rhythm without murmurs, rubs or gallops. RESPIRATORY: Breath sounds equal bilaterally, no wheezes rales or rhonchi. ABDOMEN: Soft, nontender. Normoactive bowel sounds all 4 quadrants. No guarding or rebound. EXTREMITIES: Normal range of motion, no clubbing or edema. Neurovascularly intact Left leg swollen distal pedal pulse intact calf is soft. Dressing in place to no significant erythema or contusion. NEUROLOGICAL: Alert and oriented x4.Normal gait and speech. SKIN: Warm, dry, no laceration, no petechiae, no rashes or lesions. Course Orders Ordered: ED Orders 02/09/22 20:41 US periph venous low extrem lt Stat 02/09/22 23:08 Urine Microscopic Stat Discontinued Medications Hydromorphone HCl (Hydromorphone 2 Mg Inj) 1 mg SUBCUT Q4H PRN PRN Reason: Pain, Severe (7-10) Last Admin: 02/09/22 23:50 Dose: 1 mg Documented By: PILLO Vital Signs Vital signs: Vital Signs - 8 hr 02/09/22 20:32 02/09/22 23:59 Temperature 98.3 F Pulse Rate 100 H 91 H Respiratory Rate 24 20 Blood Pressure 169/82 H 145/79 H Pulse Oximetry 99 99 Oxygen Delivery Method Room Air Room Air MDM - Extremity (Nontraumatic) Lab Data Labs: Lab Results 02/09/22 Range/Units 23:08 Urine RBC 0-1/hpf (0-5/HPF) Urine WBC None seen (0-5/HPF) Ur Squamous Epith Cells 0-1 /hpf (0-5/HPF) Urine Bacteria Occasional (0-1) (None) Ur Culture Indicated? Cult not indicated Urine Dip Bedside Urine Glucose Negative Bedside Urine Bilirubin - Negative Bedside Urine Ketone - Negative Urine Specific [place] 1.015 Bedside Urine Occult Blood +/- Bedside Urine pH 6 Bedside Urine Protein - Negative Bedside Urine Urobilinogen - Negative Bedside Urine Nitrite - Negative Bedside Urine Leukocytes - Negative Esterase Imaging Data US - DVT: Radiologist's Impression: ent: Tiffani Friend MR#: [id number] : 1955 Acct:[id number] Age/Sex: 66 / F Date of Service: 02/09/22 Loc: ED Accession Number: [id number] ?? Procedure: US periph venous low extrem lt Ordering Provider: Erma Morales D.O. PROCEDURE:? US PERIPH VENOUS LOW EXTREM LT ? INDICATIONS:? post op pain and swelling ? TECHNIQUE:? Real-time imaging, as well as color and pulse Doppler interrogation, were performed of the lower extremity deep veins from the inguinal ligament to the popliteal fossa.? ? COMPARISON:? [facility], , US PERIPH VENOUS LOW EXTREM LT, 08/02/2021, 18:23. ? FINDINGS:? The common femoral, femoral and popliteal veins are normally compressible, and free of intraluminal thrombus.? Color and pulse Doppler demonstrate normal phasic intraluminal flow.? There is normal augmentation response to distal compression maneuver. ? ? IMPRESSION:? ? 1. No evidence of deep venous thrombosis in the left lower extremity. ? ? Dictated by: Victoriano Hill M.D. on 02/09/2022 at 22:21 MDM Narrative Medical decision making narrative: Patient does not seem to be tolerating hydromorphone for pain. Discussed taking Zofran prior to pain medication. There is no evidence a DVT or UTI. She is afebrile does not appear septic. At this time I see no indication to do any further workup. I suspect this is normal postoperative swelling. Her calf is soft there is no evidence of compartment syndrome she has a good distal pulse. She actually ambulated to the restroom with minimal assistance by her . She has no chest pain cough shortness of breath or hypoxia, to indicate need for chest x-ray. I think her medications and not being able to tolerate them making her feel poorly. Discharge Plan Departure Patient Disposition: Home Clinical Impression: Post-operative pain Activity Restrictions/Additional Instructions: *You have been diagnosed with postoperative pain *What to do: Continue to elevate and ice. No evidence of blood clot or UTI. *Continue to take medications as directed --> SENT TO [facility] Zofran 4 mg 30 minutes prior to pain medication *Follow up with your primary care provider in 2-3 days or call [phone] *Return to ER if you should have increasing pain swelling fever chills or any new, worsening or concerning symptoms Prescriptions: New ondansetron 4 mg tablet,disintegrating 4 mg PO Q8H PRN (Reason: nausea and vomiting) Qty: 10 0RF No Action hydromorphone 2 mg tablet 2 mg PO Q4H PRN (Reason: pain) Qty: 40 0RF Rx Instructions: acute postop ondansetron 4 mg tablet,disintegrating 4 mg PO Q8H PRN (Reason: nausea and vomiting) Qty: 7 1RF docusate sodium [Colace] 100 mg capsule 100 mg PO BID Qty: 60 0RF aspirin 81 mg tablet,delayed release (DR/EC) 81 mg PO BID Qty: 60 0RF Referrals: García Bolton MD [Primary Care Provider] - Visit Report Forms: Patient Portal/API
[2022-02-09] MEDS: HYDROMORPHONE 2 MG INJ 1 MG SUBCUT (23:50)
[2022-02-09 23:59] VITALS: BP 145/79; PULSE 91; RESP 20; O2SAT 99
== END 2022-02-10 | disposition home or self-care (01) ==
PROVIDERS: Emergency Provider Emergency Medicine; PCP Family Medicine
DX: G89.18 Other acute postprocedural pain (principal); Z96.652 Presence of left artificial knee joint
CPT/HCPCS: 36415; 81003; 81015; 93971; 96372; 99284; J1170

== ENCOUNTER → 2024-07-29 16:42 | Outpatient (CLI) | payer MEDICARE, SELFPAY ==
[2022-02-03 11:58] VITALS: BMI 28.0
[2024-07-29 16:59] LABS: Add Manual Diff / Slide Review NO; Basophils Absolute Auto 100 /uL (0-100); Basophils Percent Auto 1.4 % (0-2); Eosinophils Absolute Auto 200 /uL (0-450); Eosinophils Percent Auto 2.1 % (2-4); Hematocrit 37.6 % (36-46); Hemoglobin 12.7 g/dL (12.0-16.0); Lymphocytes Absolute Auto 2200 /uL (1100-4500); Lymphocytes Percent Auto 29.8 % (25-40); Mean Corpuscular HGB Conc 33.8 % (30-36); Mean Corpuscular Hemoglobin 32.5 PG (26-34); Mean Corpuscular Volume 96.2 fL (80-100); Monocytes Absolute Auto 800 /uL (0-900); Monocytes Percent Auto 11.2 % (3-14); Neutrophils Absolute Auto 4200 /uL (1500-7000); Neutrophils Percent Auto 55.5 % (50-75); Platelet Count 381 X10^3/uL (150-400); Red Blood Cell Count 3.91 X10^6/uL (4.0-5.2); Red Cell Distribution Width 13.8 % (11.6-14.8); White Blood Cell Count 7.5 X10^3/uL (4.5-11.0)
[2024-07-29 17:28] LABS: Alanine Aminotransferase 42 IU/L (<35); Albumin 4.4 g/dL (3.5-5.0); Albumin Globulin Ratio 1.6 (1.0-2.8); Alkaline Phosphatase 71 U/L (38-126); Aspartate Aminotransferase 44 IU/L (14-36); BUN Creatinine Ratio 30.8 (6-22); Bilirubin Total 0.2 mg/dL (0.2-1.3); Blood Urea Nitrogen 24 mg/dL (7-17); Calcium 9.1 mg/dL (8.4-10.2); Carbon Dioxide 30 mmol/L (22-32); Chloride 100 mmol/L (98-107); Cholesterol 193 mg/dL (140-199); Estimated Glomerular Filt Rate > 60 mL/min (>60); Globulin 2.8 g/dL (1.7-4.1); Glucose 104 mg/dL (80-110); HDL Cholesterol 72 mg/dL (40-60); HEMOLYSIS < 15 (0-50); LDL Cholesterol Calculated 92 mg/dL (<100); Potassium 4.9 mmol/L (3.4-5.1); Sodium 136 mmol/L (137-145); Total Protein 7.2 g/dL (6.3-8.2); Triglycerides 143 mg/dL (35-150)
[2024-07-29 17:57] LABS: TSH w/ Reflex to FT4 0.87 uIU/mL (0.47-4.68)
== END ==
PROVIDERS: PCP Family Medicine; Referring Provider Family Medicine; Visit Provider Family Medicine
DX: R74.8 Abnormal levels of other serum enzymes (principal); M54.9 Dorsalgia, unspecified; M18.0 Bilateral primary osteoarthritis of first carpometacarpal joints; R16.1 Splenomegaly, not elsewhere classified
CPT/HCPCS: 36415; 80053; 80061; 84443; 85025

== ENCOUNTER 2025-02-13 13:21 | Emergency (ER) | payer MEDICARE, SELFPAY ==
[2022-02-03 11:58] VITALS: BMI 28.0
[2025-02-13 13:22] VITALS: BP 170/80; PULSE 74; RESP 14; TEMP 36.5; O2SAT 97; BMI 21.0
--- NOTE | 2025-02-13 13:34 | ED.SKABFB ---
HPI - Skin/Abscess/Foreign Bdy General Chief complaint: Skin/Abscess/Foreign Body Stated complaint: Possible chickenpox x last night Time Seen by Provider: 02/13/25 13:25 Source: patient Mode of arrival: Ambulatory Limitations: no limitations History of Present Illness HPI narrative: Ms. Friend is a pleasant 69-year-old female with a past medical history of lumbar stenosis, splenic mass s/p splenectomy who presents to the emergency department for a rash on her back and abdomen x2 days. Patient reports she 1st noticed some small white bumps on her lower back and then yesterday they developed into red bumps on her back and her abdomen. These bumps are very itchy. She is not having any drainage. No fevers, chills, flu-like symptoms, oropharyngeal lesions or swelling. She was concerned that it may be chickenpox which prompted her ER arrival. No new medications, foods or products. Related Data Previous Rx's ?Medication ?Instructions ?Recorded ibuprofen 800 mg tablet See Rx Instructions .Route 07/29/24 .COMPLEX #90 tabs loratadine 10 mg tablet 10 mg PO DAILY 2 weeks #14 tabs 02/13/25 triamcinolone acetonide 0.1 % 1 applic topical BID 2 weeks #30 02/13/25 topical cream grams Allergies Allergy/AdvReac Type Severity Reaction Status Date / Time morphine (MORPHINE) Allergy Severe SOB/ANAPHYL Verified 02/13/25 13:29 AXIS ketoconazole (KETOCONAZOLE) Allergy Intermediate pain, rash Verified 02/13/25 13:29 Review of Systems Review of Systems ROS Unobtainable: All systems reviewed & are unremarkable except as noted in HPI and below Patient History Medical History Elevated liver enzymes Fusion of lumbar spine (2020) Splenic mass Osteoarthritis of spine with radiculopathy, lumbar region Back pain of lumbar region with sciatica Yeast infection Vaginal atrophy Vaginal pain Vision disorder Hearing deficit Psoriasis Migraines (~1976) Headache (~1976) Lumbar strain Chronic back pain (~2006) Carpal tunnel syndrome (~2007) Breast cancer Surgical History 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 Social History marital status: unknown household members: none occupational status: previously employed Smoking Status: Unknown if ever smoked alcohol intake: current substance use type: does not use Smoking Status: Unknown if ever smoked alcohol intake frequency: holidays/special occasions only Exam Narrative Exam Narrative: GENERAL: 69 year old patient appears stated age. Well-developed patient, in no acute distress. HEAD: Atraumatic. Normocephalic. EYES: No scleral icterus. No injection or drainage. ENT: Nose without bleeding, purulent drainage. Throat without erythema, tonsillar hypertrophy or exudate. Airway patent. NECK: Trachea midline. Cervical ROM intact. CARDIOVASCULAR: Regular rate and rhythm. RESPIRATORY: ?Nonlabored respirations. ?Speaking in clear, full sentences. ?Clear to auscultation. Breath sounds equal bilaterally. No wheezes, rales, or rhonchi. ? GASTROINTESTINAL: Abdomen soft, non-tender, nondistended. EXTREMITIES: No LE edema. BACK: Nontender without deformity or crepitance. No flank tenderness. NEURO: AOx3. ?Clear speech. ?Moves all 4 extremities appropriately. SKIN: On the trunk, there is an erythematous, blanchable maculopapular rash starting in the lumbar spine extending up the back and around to the front of the abdomen. There are no vesicles, blisters, bullae, scabbing, pustules. There is no rash on the extremities, face, neck, palms or mucous membranes. Initial Vital Signs Initial Vital Signs: Vital Signs Temperature 97.7 F 02/13/25 13:22 Pulse Rate 74 02/13/25 13:22 Respiratory Rate 14 02/13/25 13:22 Blood Pressure 170/80 H 02/13/25 13:22 Pulse Oximetry 97 02/13/25 13:22 Oxygen Delivery Method Room Air 02/13/25 13:22 Course Vital Signs Vital signs: Vital Signs - 8 hr 02/13/25 13:22 Temperature 97.7 F Pulse Rate 74 Respiratory Rate 14 Blood Pressure 170/80 H Pulse Oximetry 97 Oxygen Delivery Method Room Air MDM - Skin/Abscess/Foreign Bdy Medical Records Attestation: I reviewed the patient's medical records. [facility] Narrative Medical decision making narrative: 69-year-old female with a past medical history of lumbar stenosis, splenic mass s/p splenectomy who presents to the emergency department for a rash on her back and abdomen x2 days. Differential diagnosis includes but is not limited to pityriasis rosea, atopic dermatitis, viral exanthem, urticaria, varicella zoster, etc. On exam patient is in no acute distress, nontoxic appearing, vital signs appropriate except for mildly elevated blood pressure. The patient has an erythematous, maculopapular, pruritic rash on her back and abdomen. There are no blisters, bullae, pustules, vesicles, streaking, crusting or drainage. Rash appears most clinically consistent with pityriasis rosea, patient was concerned for chickenpox and we discussed this could potentially be very early stage however it is not clinically consistent with a chickenpox at all at this time. She is not having any systemic symptoms, flu-like symptoms. The rash is quite itchy. No mucous membrane or oral lesions. This time recommend topical steroid, prescribe triamcinolone b.i.d. x2 weeks, also prescribed antihistamine. Recommended close monitoring of the rash and returning to the ER for any new worsening or concerning symptoms. Patient verbalized understanding of all information and is agreeable to this plan. She is stable for discharge home. Discharge Plan Departure Patient Disposition: Home Clinical Impression: Rash Instructions: DI for Pityriasis Rosea Activity Restrictions/Additional Instructions: Dear Ms. Friend, Thank you for coming to the emergency department. Today you were evaluated for an itchy rash on your back and abdomen. At this time this rash appears to be something called pityriasis rosea which will go away on its own in a few weeks but can be helped with the topical steroid. It is also possible that this is a different rash that is still developing. Please use the prescribed antihistamine and prescribed topical steroid. Please return to the emergency department immediately if you develop new or worsening symptoms, fevers, vomiting or any other concerns. I would like you to follow up as soon as possible with your primary care doctor for repeat evaluation. Please follow up with your primary care doctor within the next 2-3 days for ER follow-up. (If you do not have a PCP you can call [phone]. ?to schedule an appointment with an [facility] Primary Care Provider) IF YOU DEVELOP ANY NEW OR WORSENING SYMPTOMS, RETURN TO THE ER! Please read the attached instructions, they highlight more specific treatments and interventions for you at home. Thank you for letting me participate in your care, Vy Hickman PA-C Prescriptions: New triamcinolone acetonide 0.1 % cream 1 applic topical BID 14 Days Qty: 30 0RF loratadine 10 mg tablet 10 mg PO DAILY 14 Days Qty: 14 0RF No Action ibuprofen 800 mg tablet See Rx Instructions .ROUTE .COMPLEX Qty: 90 3RF Dose Instruction: TAKE 1 TABLET BY MOUTH EVERY 8 HOURS Rx Instructions: TAKE 1 TABLET BY MOUTH EVERY 8 HOURS Referrals: García Bolton MD [Primary Care Provider, Family Practice] Stand Alone Forms: Patient Portal/API
--- NOTE | 2025-02-13 13:34 | ED_ITS ---
<Statement entered by Norman Rodas, DO - 02/14/25 07:48>
== END 2025-02-13 13:44 | disposition home or self-care (01) ==
PROVIDERS: Emergency Provider Physician Assistant; PCP Family Medicine
DX: R21 Rash and other nonspecific skin eruption (principal); I10 Essential (primary) hypertension
CPT/HCPCS: 99281

== ENCOUNTER → 2025-03-05 11:41 | Outpatient (CLI) | payer MEDICARE, SELFPAY ==
[2022-02-03 11:58] VITALS: BMI 28.0
--- NOTE | 2025-03-05 11:42 | DI.MG.S_ITS ---
MM screening mammo BI: 03/05/2025. BI-RADS: 2 CLINICAL: 69-year old female for bilateral screening mammogram. Tyrer-Cuzick lifetime risk of 1.3%. No personal or first-degree family history of breast cancer. PRIOR EXAMS 09/14/2017, 07/01/2014. MAMMOGRAPHY TECHNIQUE: 2D and 3D (tomosynthesis) digital mammographic views obtained, with additional images as needed for full coverage. Current study was also evaluated with a Computer Aided Detection (CAD) system. DENSITY C. The breasts are heterogeneously dense, which may obscure small masses. MAMMOGRAPHY FINDINGS Right: No suspicious mass, asymmetry, microcalcification, or other abnormality seen. Left: Biopsy marker present on the left. There are no suspicious masses, calcifications, or other findings in the breast. IMPRESSION: Right * No evidence of malignancy. Left * No evidence of malignancy with benign findings. RECOMMENDATIONS Bilateral * Annual screening mammography. OVERALL ASSESSMENT CATEGORY BI-RADS-2: Benign. [employer] recommends annual screening mammography beginning at age 40 for women with average risk of breast cancer. ELECTRONICALLY SIGNED: Pratima Coffey M.D. on 03/05/2025 at 03:32:04 PM PT Interpreting Station ID: [id number]
== END ==
PROVIDERS: PCP Family Medicine; Referring Provider Family Medicine; Visit Provider Family Medicine
DX: Z12.31 Encounter for screening mammogram for malignant neoplasm of breast (principal); R92.333 Mammographic heterogeneous density, bilateral breasts
CPT/HCPCS: 77063; 77067